=== PATIENT | male | born 1980 | race Caucasian/White ===

== ENCOUNTER 2016-06-01 06:30 | Day surgery (SDC) | payer OTHER, BC ==
[2016-06-01] MEDS ORDERED: Lactated Ringers 1,000 ML IV SCH ×2 (07:10→08:00)
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
[2016-06-01] MEDS ORDERED: Midazolam 1 MG/ML 2 ML SDV ONE (07:24)
[2016-06-01] MEDS ORDERED: Propofol 200 MG/20 ML SDV ONE (07:24)
[2016-06-01] MEDS ORDERED: fentaNYL 250 MCG/5 ML SDV ONE (07:24)
[2016-06-01] MEDS ORDERED: Lidocaine 2% 5 ML SDV ONE (07:24)
[2016-06-01] MEDS ORDERED: Ondansetron 4 MG/2 ML SDV ONE (07:25)
[2016-06-01] MEDS ORDERED: Ketorolac 30 MG/ML SDV ONE (07:25)
[2016-06-01] MEDS ORDERED: Bupivacaine 0.25%/EPINEPHrine 1:200,000 10 ML SDV ONE (07:26)
[2016-06-01] MEDS ORDERED: Bupivacaine 0.25%/EPINEPHrine 1:200,000 10 ML SDV INJECT ONE (07:30)
[2016-06-01] MEDS ORDERED: ceFAZolin 2 GM in Premix Bag 1 BAG IV ONE (07:30)
[2016-06-01] MEDS ORDERED: Acetaminophen/HYDROcodone 325-5 MG Tab PO PRN (08:00)
[2016-06-01] MEDS ORDERED: fentaNYL 100 MCG/2 ML SDV IVPUSH PRN (08:20)
--- NOTE | 2016-06-01 09:03 | PCM.POSTAN ---
POST ANESTHESIA ASSESSMENT - MENTAL STATUS Mental Status: alert, oriented - RESPIRATORY Respiratory Status: respiratory rate WNL - CARDIOVASCULAR CV Status: pulse rate WNL, blood pressure stable - GASTROINTESTINAL GI Status: no symptoms - PAIN Pain Score: 0 - POST OP HYDRATION Hydration Status: adequate & stable - OBSERVATIONS Free Text/Narrative:: no anesthesia problems
--- NOTE | 2016-06-01 09:15 | PCM.OPNOTE ---
- General Post-Op/Procedure Note Date of Surgery/Procedure: 06/01/16 Operative Procedure(s): excision of right volar wrist ganglion Pre Op Diagnosis: right volar wrist ganglion Post-Op Diagnosis: Same Anesthesia Technique: Local, MAC Primary Surgeon: Lizbeth Reyes Math Tutor: Nubia Rosales Complications: None Condition: Good Free Text/Narrative:: Intake & Output 05/31/16 06/01/16 06/01/16 23:59 07:59 15:59 Intake Total 1300 Balance 1300
[2016-06-01 10:02] VITALS: BP 118/66
--- NOTE | 2016-06-01 14:22 | OR ---
SURGEON: TAISHA CABRERA MD DATE OF PROCEDURE: 06/01/2016 PREOPERATIVE DIAGNOSIS: Right volar wrist ganglion. POSTOPERATIVE DIAGNOSIS: Right volar wrist ganglion. PROCEDURES: Excision of right volar wrist ganglion. MANAGER ER: Nubia Rosales PA-C. ANESTHESIA: General LMA. INDICATIONS: Mr. Richards is a 35-year-old gentleman, seen today in evaluation for a right volar wrist ganglion. Risks and benefits of excision were discussed with him and he was in agreement to proceed. Risks were including, but not limited to, bleeding, infection, damage to underlying or overlying structures, possible need for future interventions and possible scarring. PROCEDURE IN DETAIL: After informed consent was obtained and placed on the chart, the patient was brought to the operating theater and laid in the supine position. After adequate general LMA anesthesia was obtained, the area was prepped and draped in normal fashion. Time-out was completed to confirm side and site. Attention was then paid to dissection of the right volar wrist ganglion. Local anesthesia was infiltrated. The arm was exsanguinated and tourniquet was inflated to 200 mmHg. A longitudinal incision was then made over this dissection was carried down circumferentially and this was freed from all surrounding structures. It was traced down to the joint itself, cauterized, transected and a figure of eight 4- 0 Monocryl suture was used to close the communication with the joint. This was copiously irrigated and then the skin was closed using deep 4-0 Monocryl stitches in a running 4-0 subcuticular for the skin. The wound was dressed with Steri-Strips, fluffs, and a short-arm splint with plaster. The patient tolerated the procedure well. All counts of needles were correct at the end of the case. FOLLOWUP INSTRUCTIONS: The patient will see us in clinic in 10 to 14 days sooner if any problems, questions, or concerns. He was given a prescription for pain control. HEGGTHE / MODL /[id number]
== END 2016-06-01 09:50 | disposition home or self-care (01) ==
LOC: EDSEX → MW.SDS 06:30 → MERGE 08:00 → MW.SDS 09:50
PROVIDERS: ATTEND Plastic Surgery
DX: M67.431 Ganglion, right wrist (principal); Z88.1 Allergy status to other antibiotic agents; J45.909 Unspecified asthma, uncomplicated; K21.9 Gastro-esophageal reflux disease without esophagitis; E66.9 Obesity, unspecified; Z68.30 Body mass index [BMI] 30.0-30.9, adult; Z98.890 Other specified postprocedural states; Z79.899 Other long term (current) drug therapy
CPT/HCPCS: 25111; J1885; J2250; J2405; J3010; J7120; 01810; 88304; J2704

== ENCOUNTER 2018-09-06 19:42 | Emergency (ER) | payer OTHER ==
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
[2018-09-06] MEDS ORDERED: Ketorolac 30 MG/ML SDV IVPUSH ONE (21:04)
--- NOTE | 2018-09-06 21:23 | CR ---
INDICATION: Trauma. TECHNIQUE: Cervical spine 3 views. FINDINGS: Mild degenerative changes throughout the cervical facet joints. Scattered degenerative changes elsewhere in the cervical spine with moderate narrowing of the C2, C5, and C6 interspaces with minimal hypertrophic changes. No acute fracture or subluxation and cervical spine. Small right-sided cervical rib. Remainder negative. Dictated by Jamie Natarajan MD @ Sep 06 2018 9:18PM Signed by Dr. Jamie Natarajan @ Sep 06 2018 9:22PM
--- NOTE | 2018-09-06 21:23 | CR ---
INDICATION: Trauma. TECHNIQUE: Three views right shoulder. FINDINGS: The width of the AC joint is widened at 9 mm and there is abnormal superior subluxation of the right lateral clavicle with regard to the acromion by at least 1 cm. Findings consistent with posttraumatic AC separation and subluxation. The coracoclavicular distance is also widened. No acute fracture involving the right shoulder or clavicle. Small right-sided cervical rib. Remainder negative. Dictated by Jamie Natarajan MD @ Sep 06 2018 9:17PM Signed by Dr. Jamie Natarajan @ Sep 06 2018 9:21PM
--- NOTE | 2018-09-06 21:27 | CR ---
INDICATION: Trauma. TECHNIQUE: AP pelvis and 2 views right hip. FINDINGS: Small sclerotic lesion right femoral head may be a bone island. The right superior pubic ramus appears enlarged compared to the left and may have subtle increased sclerosis. Etiology of these findings is uncertain. There is subtle linear lucency involving the junction of the right superior pubic ramus and ischium but this is not as distinct as typically seen for a fracture. No acute fracture or dislocation involving the pelvis or right hip. Ill-defined cortical protuberance arising from the superior lateral iliac bone could be related to prior trauma. Remainder negative. Dictated by Jamie Natarajan MD @ Sep 06 2018 9:23PM Signed by Dr. Jamie Natarajan @ Sep 06 2018 9:26PM
[2018-09-06 21:49] VITALS: BP 145/76
== END 2018-09-06 21:50 | disposition home or self-care (01) ==
LOC: MW.ED 19:42
DX: S43.101A Unspecified dislocation of right acromioclavicular joint, initial encounter (principal); S00.81XA Abrasion of other part of head, initial encounter; S40.812A Abrasion of left upper arm, initial encounter; S40.811A Abrasion of right upper arm, initial encounter; T14.8XXA Other injury of unspecified body region, initial encounter; Z79.899 Other long term (current) drug therapy; Z88.1 Allergy status to other antibiotic agents; V89.2XXA Person injured in unspecified motor-vehicle accident, traffic, initial encounter
CPT/HCPCS: 72040; 73030; 73502; 96374; 99283; J1885

== ENCOUNTER 2019-03-13 10:44 | Day surgery (SDC) | payer OTHER ==
[~2019-03-13 10:44] MED LIST: Lactated Ringers 1,000 ML IV SCH; Lidocaine 2% 5 ML SDV ONE; Midazolam 1 MG/ML 2 ML SDV ONE; Propofol 200 MG/20 ML SDV ONE; fentaNYL 100 MCG/2 ML SDV ONE
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
--- NOTE | 2019-03-13 13:16 | PCM48HPAN ---
Post Anesthesia Note - EVALUATION WITHIN 48HRS OF ANESTHETIC Vital Signs in Normal Range: Yes Patient Participated in Evaluation: Yes Respiratory Function Stable: Yes Airway Patent: Yes Cardiovascular Function Stable: Yes Hydration Status Stable: Yes Pain Control Satisfactory: Yes Nausea and Vomiting Control Satisfactory: Yes Mental Status Recovered: Yes Vital Signs: Last Vital Signs Temp 97.9 F 03/13/19 13:00 Pulse 86 03/13/19 13:10 Resp 18 03/13/19 13:10 BP 124/73 03/13/19 13:10 Pulse Ox 98 03/13/19 13:10
--- NOTE | 2019-03-13 13:16 | PCM.POSTAN ---
POST ANESTHESIA ASSESSMENT - MENTAL STATUS Mental Status: Alert, Oriented - VITAL SIGNS Vital Signs: Last Vital Signs Temp 97.9 F 03/13/19 13:00 Pulse 86 03/13/19 13:10 Resp 18 03/13/19 13:10 BP 124/73 03/13/19 13:10 Pulse Ox 98 03/13/19 13:10 - RESPIRATORY Respiratory Status: Respiratory Rate WNL, Airway Patent, O2 Saturation Stable - CARDIOVASCULAR CV Status: Pulse Rate WNL, Blood Pressure Stable - GASTROINTESTINAL GI Status: No Symptoms - POST OP HYDRATION Hydration Status: Adequate & Stable
[2019-03-13 13:32] VITALS: BP 125/79; PULSE 83
--- NOTE | 2019-03-13 14:26 | PCM.OPNOTE ---
- General Post-Op/Procedure Note Date of Surgery/Procedure: 03/13/19 Operative Procedure(s): egd w bx Findings: see [id number] Pre Op Diagnosis: recurrent gerd Post-Op Diagnosis: Same Anesthesia Technique: Moderate Sedation Primary Surgeon: Jerome Gilman Pathology: sent Complications: None Condition: Good Free Text/Narrative:: Intake & Output 03/12/19 03/13/19 03/13/19 22:59 06:59 14:59 Intake Total 650 Balance 650
--- NOTE | 2019-03-13 15:39 | OR ---
SURGEON: Jerome Gilman MD DATE OF PROCEDURE: 03/13/2019 PREOPERATIVE DIAGNOSIS: Recurrent gastroesophageal reflux disease. POSTOPERATIVE DIAGNOSIS: Recurrent gastroesophageal reflux disease. PROCEDURE PERFORMED: Esophagogastroduodenoscopy with biopsy. DESCRIPTION OF PROCEDURE: EGD: The patient was taken to the endoscopy room, and with the QUILLER MACHINE FIXER, Diprivan was administered. A well-lubricated EGD scope was gently inserted through the oropharynx, down the esophagus, passing through the gastroesophageal junction, into the stomach. The mucosa was examined upon the passage. Any etiology will be noted. Once in the stomach, we continued to advance to the distal antrum, passed through the pylorus into the second portion of the duodenum. Again, the mucosa was examined for any abnormality and etiology. The scope was then retrieved back to the stomach and then retroflexed to look at the fundus of the stomach. If a biopsy was indicated, we will biopsy the antrum, body, and gastroesophageal junction. The air will be sucked out while the scope is retrieved to reduce the patient's discomfort. The patient tolerated the procedure well. There were no intraoperative complications. Dr. Gilman was present through the whole procedure. Prior to surgery, a time-out had been called, the patient identified, procedure identified and antibiotic administered. FINDINGS: 1. The patient is easily sedated with QUILLER MACHINE FIXER and Diprivan, the patient is soundly snoring. 2. Oropharynx and proximal esophagus are free of disease, stricture, inflammation, none of those. Distal esophagus at GE junction at 40 shows mild salmon-colored change, suggestive of acid reflux. Stomach rugae are normal in appearance. Antrum looks fine. Duodenum looks grossly normal. Retroflexed look at the fundus of stomach, there is no hiatal hernia. Biopsy done at antrum, body, GE junction at 40, and sucked out gas while scope pulling out. During the whole study, there is no blood, ulcer, food, or bile observed. MATT / PETE /[id number]
== END 2019-03-13 13:47 | disposition home or self-care (01) ==
LOC: MW.SDS 10:44
PROVIDERS: ATTEND Surgery
DX: K21.9 Gastro-esophageal reflux disease without esophagitis (principal); K29.50 Unspecified chronic gastritis without bleeding; G43.709 Chronic migraine without aura, not intractable, without status migrainosus; J45.909 Unspecified asthma, uncomplicated; Z88.1 Allergy status to other antibiotic agents; Z88.8 Allergy status to other drugs, medicaments and biological substances; Z91.010 Allergy to peanuts; Z79.01 Long term (current) use of anticoagulants; Z79.899 Other long term (current) drug therapy; Z88.0 Allergy status to penicillin
CPT/HCPCS: 43239; J2001; J2250; J2704; J3010; J7120

== ENCOUNTER 2020-10-03 10:11 | Inpatient (IN) | payer OTHER, BC ==
[2020-10-03] MEDS ORDERED: Ondansetron 4 MG/2 ML SDV IVPUSH ONE ×2 (10:29→10:30)
[2020-10-03] MEDS ORDERED: Sodium Chloride 0.9% 1,000 ML IV ONE ×2 (10:29→11:45)
--- NOTE | 2020-10-03 10:35 | EDM.PDOC ---
ED HPI GENERAL MEDICAL PROBLEM - General Chief Complaint: Fever Stated Complaint: CHILLS, FEVER Time Seen by Provider: 10/03/20 10:15 Source of Information: Reports: Patient History Limitations: Reports: No Limitations - History of Present Illness INITIAL COMMENTS - FREE TEXT/NARRATIVE: HISTORY AND PHYSICAL: History of present illness: Patient is a 39-year-old male who presents to the emergency room from the walk- in clinic with concerns of COVID-19. He states over the past 4 days he has had fever (TMAX 104F), chills, body aches, cough, shortness of breath, chest pain, nausea, vomiting and diarrhea. He and his went to the walk-in clinic for COVID-19 testing, they recommended he come to the emergency room as they were concerned he was dehydrated. Patient denies any change in vision, syncope or near syncope. Denies any back pain, abdominal pain, constipation or dysuria. Has not noted any blood in urine or stool. Patient has not been eating and drinking appropriately. Review of systems: As per history of present illness and below otherwise all systems reviewed and negative. Past medical history: As per history of present illness and as reviewed below otherwise noncontributory. Surgical history: As per history of present illness and as reviewed below otherwise noncontributory. Social history: See social history for further information Family history: As per history of present illness and as reviewed below otherwise noncontributory. Physical exam: General: Well developed and well nourished. Alert and orientated x 3. Nontoxic in appearance and in no acute distress. Vital signs are stable and have been reviewed by me. Nursing notes were reviewed. HEENT: Atraumatic, normocephalic, pupils equal and reactive bilaterally, negative for conjunctival pallor or scleral icterus, mucous membranes moist, TMs normal bilaterally, throat clear, neck supple, nontender, trachea midline. No drooling or trismus noted. No meningeal signs. No hot potato voice noted. Lungs: Diminished to auscultation bilaterally. No wheezes, rales, or rhonchi. Chest nontender. Normal work of breathing, no accessory muscles used. Dry nonproductive cough noted. Heart: S1S2, regular rate and rhythm without overt murmur, gallops, or rubs. No JVD. No peripheral edema Abdomen: Soft, nondistended, nontender. Normoactive bowel sounds. Negative for masses or costovertebral tenderness. Skin: Diaphoretic, intact, and cool. No lesions or rashes noted. Hematologic: No petechiae or purpra. Mucosa appropriate color and normal nail bed color and refill. Extremities: Atraumatic, moves all extremities per self without difficulty or deficits, negative for cords or calf pain. Neurovascular unremarkable. Neuro: Awake, alert, oriented. Cranial nerves II through XII unremarkable. Cerebellum unremarkable. Motor and sensory unremarkable throughout. Exam nonfocal. Psychiatric: Mood and affect are appropriate. Normal thought process. Answering questions appropriately. Notes: *This patient was seen and evaluated during the 2019 SARS-CoV-2 novel coronavirus pandemic period. Community viral transmission is ongoing at time of this encounter and the emergency department is operating under pandemic response procedures. Patient is a 39-year-old male who presents to the emergency room from the walk- in clinic with concerns of COVID-19. He states he has had nausea, vomiting, diarrhea over the past 4 days and upper respiratory symptoms. Patient does appear diaphoretic, he states his temperature was 104 at home. Has been alternating Tylenol and ibuprofen with intermittent relief. Influenza A/B are negative and Positive COVID-19 (from clinic testing today). Chest x-ray shows hyperinflation and chronic interstitial changes with increased interstitial markings likely representing developing pulmonary edema and/or multifocal infiltrates. Correlate with history of mendes virus infection and/or exposure. Patient's sodium is 130, chloride 95 and CK is 1839. Negative troponin. I have talked with the patient about today's findings, in addition to providing specific details for plan of care. Spoke with Dr Wall, hospitalist on-call, about this patient. He is agreeable to keeping t his patient for further management and care. Patient is aware and agreeable. VSS. Will continue to monitor until transferred to the Med/Surg floor. Diagnostics: CBC, CMP, troponin, EKG, chest x-ray, CPK Therapeutics: IV fluids, Tylenol Impression: COVID-19 Rhabdomyolysis Dehydration Definitive disposition and diagnosis as appropriate pending reevaluation and review of above. Back/Chest Pain Score (Numeric/FACES): 7 - Related Data Allergies Allergy/AdvReac Type Severity Reaction Status Date / Time amoxicillin [From Augmentin] Allergy Other Verified 10/03/20 10:29 clavulanic acid Allergy Other Verified 10/03/20 10:29 [From Augmentin] cyclobenzaprine Allergy Cannot Verified 10/03/20 10:29 [From Flexeril] Remember erythromycin base Allergy Cannot Verified 10/03/20 10:29 Remember hydrocodone Allergy Itching Verified 10/03/20 10:29 melatonin Allergy Hives Verified 10/03/20 10:29 neomycin Allergy Blisters Verified 10/03/20 10:29 tree nut [Pecans] Allergy Itching Verified 10/03/20 10:29 walnut Allergy Itching Verified 10/03/20 10:29 Home Meds: Home Meds Omeprazole [Prilosec] 20 mg PO BID 01/20/15 [History] Cyclobenzaprine [Flexeril] 10 mg PO ASDIRECTED PRN 09/06/18 [History] Fexofenadine [Radha] 30 mg PO DAILY 03/10/19 [History] Fluticasone Propionate [Flonase Allergy Relief] 2 spray NASBOTH DAILY 03/10/19 [History] Loratadine [Claritin] 10 mg PO DAILY 03/10/19 [History] Meloxicam 15 mg PO DAILY 03/10/19 [History] SUMAtriptan [Imitrex] 50 mg PO ASDIRECTED PRN 03/10/19 [History] methocarbamoL [Robaxin-750] 750 mg PO TID 03/10/19 [History] Past Medical History HEENT History: Reports: Allergic Rhinitis Other HEENT History: wears contacts/glasses Cardiovascular History: Reports: Heart Murmur, Other (See Below) Other Cardiovascular History: murmur as an Respiratory History: Reports: Asthma, Other (See Below) Other Respiratory History: asthma as a child Gastrointestinal History: Reports: GERD Genitourinary History: Reports: Renal Calculus Other Genitourinary History: hx kidney stone Musculoskeletal History: Reports: Back Pain, Chronic, Fracture Other Musculoskeletal History: hx of "multiple fx" Neurological History: Reports: Concussion, Migraines, Other (See Below) Other Neuro History: [place] 2002 [place] Endocrine/Metabolic History: Dermatologic History: Reports: Eczema Other Dermatologic History: dyohydronic eczwma - Past Surgical History Head Surgeries/Procedures: Reports: None GI Surgical History: Reports: Colonoscopy, EGD, Hernia, Inguinal Other GI Surgeries/Procedures: hx inguinal hernia repair Musculoskeletal Surgical History: Reports: Ganglion Cyst Other Musculoskeletal Surgeries/Procedures:: hx of ganglion cyst removal right hand Social & Family History - Family History Family Medical History: No Pertinent Family History ED ROS GENERAL - Review of Systems Review Of Systems: Comprehensive ROS is negative, except as noted in HPI. ED EXAM, GENERAL - Physical Exam Exam: See Below (See dictation) Course - Vital Signs Last Recorded V/S: Last Vital Signs Temp 99.2 F 10/03/20 13:25 Pulse 93 10/03/20 13:25 Resp 17 10/03/20 13:25 BP 129/73 10/03/20 13:25 Pulse Ox 94 L 10/03/20 13:25 - Orders/Labs/Meds Orders: Active Orders 24 hr Category Date Time Status UA RFX SHERRELL AND CULT IF INDIC [URIN] Stat Lab 10/03/20 10:39 Ordered Isolation [COMM] Routine Oth 10/03/20 10:30 Active Medication Orders Acetaminophen (Acetaminophen 325 Mg Tab) 650 mg PO Q4H PRN PRN Reason: Pain (Mild 1-3)/fever Enoxaparin Sodium (Enoxaparin 40 Mg/0.4 Ml Syringe) 40 mg SUBCUT Q24H COLLIN Lactated Ringer's (Ringers, Lactated) 1,000 mls @ 150 mls/hr IV Q6HR COLLIN Ondansetron HCl (Ondansetron 4 Mg/2 Ml Sdv) 4 mg IVPUSH Q4H PRN PRN Reason: Nausea Pantoprazole Sodium (Pantoprazole 40 Mg Vial) 40 mg IV Q24H COLLIN Sodium Chloride (Sodium Chloride 0.9% 2.5 Ml Syringe) 2.5 ml FLUSH ASDIRECTED PRN PRN Reason: Keep Vein Open Labs: Laboratory Tests 10/03/20 10/03/20 10/03/20 Range/Units 10:32 10:32 10:32 WBC 5.43 (4.0-11.0) K/uL RBC 4.93 (4.50-5.90) M/uL Hgb 14.8 (13.0-17.0) g/dL Hct 41.3 (38.0-50.0) % MCV 83.8 (80.0-98.0) fL MCH 30.0 (27.0-32.0) pg MCHC 35.8 (31.0-37.0) g/dL RDW Std Deviation 38.8 (28.0-62.0) fl RDW Coeff of Mary Carmen 13 (11.0-15.0) % Plt Count 116 L (150-400) K/uL MPV 10.90 (7.40-12.00) fL Neut % (Auto) 83.6 H (48.0-80.0) % Lymph % (Auto) 12.3 L (16.0-40.0) % [place] % (Auto) 3.9 (0.0-15.0) % Eos % (Auto) 0.0 (0.0-7.0) % Baso % (Auto) 0.2 (0.0-1.5) % Neut # (Auto) 4.5 (1.4-5.7) K/uL Lymph # (Auto) 0.7 (0.6-2.4) K/uL [place] # (Auto) 0.2 (0.0-0.8) K/uL Eos # (Auto) 0.0 (0.0-0.7) K/uL Baso # (Auto) 0.0 (0.0-0.1) K/uL Nucleated RBC % 0.0 /100WBC Nucleated RBCs # 0 K/uL Sodium 130 L (136-148) mmol/L Potassium 4.2 (3.5-5.1) mmol/L Chloride 95 L (98-107) mmol/L Carbon Dioxide 21.5 (21.0-32.0) mmol/L BUN 18 (7.0-18.0) mg/dL Creatinine 1.3 (0.8-1.3) mg/dL Est Cr Clr Drug Dosing 65.05 mL/min Estimated GFR (MDRD) > 60.0 ml/min Glucose 91 (74-106) mg/dL Lactic Acid 1.0 (0.4-2.0) mmol/L Calcium 7.8 L (8.5-10.1) mg/dL Total Bilirubin 0.5 (0.2-1.0) mg/dL AST 81 H (15-37) IU/L ALT 35 (14-63) IU/L Alkaline Phosphatase 58 (46-116) U/L Creatine Kinase (26-308) U/L Troponin I < 0.050 (0.000-0.056) ng/mL Total Protein 7.2 (6.4-8.2) g/dL Albumin 3.3 L (3.4-5.0) g/dL Globulin 3.9 (2.6-4.0) g/dL Albumin/Globulin Ratio 0.9 (0.9-1.6) Lipase (73-393) U/L 10/03/20 Range/Units 10:32 WBC (4.0-11.0) K/uL RBC (4.50-5.90) M/uL Hgb (13.0-17.0) g/dL Hct (38.0-50.0) % MCV (80.0-98.0) fL MCH (27.0-32.0) pg MCHC (31.0-37.0) g/dL RDW Std Deviation (28.0-62.0) fl RDW Coeff of Mary Carmen (11.0-15.0) % Plt Count (150-400) K/uL MPV (7.40-12.00) fL Neut % (Auto) (48.0-80.0) % Lymph % (Auto) (16.0-40.0) % [place] % (Auto) (0.0-15.0) % Eos % (Auto) (0.0-7.0) % Baso % (Auto) (0.0-1.5) % Neut # (Auto) (1.4-5.7) K/uL Lymph # (Auto) (0.6-2.4) K/uL [place] # (Auto) (0.0-0.8) K/uL Eos # (Auto) (0.0-0.7) K/uL Baso # (Auto) (0.0-0.1) K/uL Nucleated RBC % /100WBC Nucleated RBCs # K/uL Sodium (136-148) mmol/L Potassium (3.5-5.1) mmol/L Chloride (98-107) mmol/L Carbon Dioxide (21.0-32.0) mmol/L BUN (7.0-18.0) mg/dL Creatinine (0.8-1.3) mg/dL Est Cr Clr Drug Dosing mL/min Estimated GFR (MDRD) ml/min Glucose (74-106) mg/dL Lactic Acid (0.4-2.0) mmol/L Calcium (8.5-10.1) mg/dL Total Bilirubin (0.2-1.0) mg/dL AST (15-37) IU/L ALT (14-63) IU/L Alkaline Phosphatase (46-116) U/L Creatine Kinase 1839 H (26-308) U/L Troponin I (0.000-0.056) ng/mL Total Protein (6.4-8.2) g/dL Albumin (3.4-5.0) g/dL Globulin (2.6-4.0) g/dL Albumin/Globulin Ratio (0.9-1.6) Lipase 351 (73-393) U/L Meds: Medications Generic Name Dose Route Start Last Admin Trade Name Freq PRN Reason Stop Dose Admin Acetaminophen 650 mg 10/03/20 13:24 Acetaminophen 325 Mg Tab PO Q4H PRN Pain (Mild 1-3)/fever Enoxaparin Sodium 40 mg 10/03/20 13:30 Enoxaparin 40 Mg/0.4 Ml Syringe SUBCUT Q24H COLLIN Lactated Ringer's 1,000 mls @ 150 mls/hr 10/03/20 13:26 Ringers, Lactated IV Q6HR COLLIN Ondansetron HCl 4 mg 10/03/20 13:24 Ondansetron 4 Mg/2 Ml Sdv IVPUSH Q4H PRN Nausea Pantoprazole Sodium 40 mg 10/03/20 13:30 Pantoprazole 40 Mg Vial IV Q24H COLLIN Sodium Chloride 2.5 ml 10/03/20 13:24 Sodium Chloride 0.9% 2.5 Ml Syringe FLUSH ASDIRECTED PRN Keep Vein Open Discontinued Medications Generic Name Dose Route Start Last Admin Trade Name Freq PRN Reason Stop Dose Admin Acetaminophen 1,000 mg 10/03/20 12:40 10/03/20 13:00 Acetaminophen 500 Mg Tab PO 10/03/20 12:41 1,000 mg ONETIME ONE Administration Sodium Chloride 1,000 mls @ 999 mls/hr 10/03/20 10:29 10/03/20 10:36 Normal Saline IV 10/03/20 11:29 999 mls/hr STAT ONE Administration Sodium Chloride 1,000 mls @ 999 mls/hr 10/03/20 11:45 10/03/20 12:59 Normal Saline IV 10/03/20 12:45 999 mls/hr STAT ONE Administration Ondansetron HCl 4 mg 10/03/20 10:29 10/03/20 10:37 Ondansetron 4 Mg/2 Ml Sdv IVPUSH 10/03/20 10:30 4 mg ONETIME ONE Administration Ondansetron HCl 4 mg 10/03/20 10:30 10/03/20 10:36 Ondansetron 4 Mg/2 Ml Sdv IVPUSH 10/03/20 10:31 Not Given ONETIME ONE Departure - Departure Time of Disposition: 12:43 Disposition: Refer to Observation Clinical Impression: Rhabdomyolysis due to COVID-19, Dehydration - Discharge Information Sepsis Event Note (ED) - Focused Exam Vital Signs: Vital Signs Temp Pulse Resp BP Pulse Ox 10/03/20 11:01 97 18 126/56 L 94 L 10/03/20 10:29 100.6 F 95 16 118/72 92 L - My Orders Last 24 Hours: My Active Orders 10/03/20 10:30 Isolation [COMM] Routine 10/03/20 10:39 UA RFX SHERRELL AND CULT IF INDIC [URIN] Stat - Assessment/Plan Last 24 Hours: My Active Orders 10/03/20 10:30 Isolation [COMM] Routine 10/03/20 10:39 UA RFX SHERRELL AND CULT IF INDIC [URIN] Stat
--- NOTE | 2020-10-03 10:36 | PCM.EKG ---
#1 Interpretation Time: 10:35 EKG Interpretation Comments: EKG: NSR, nonspecific ST/T changes, Rate -92
--- NOTE | 2020-10-03 11:03 | CR ---
Indication: Shortness of breath Comparison: Two-view chest January 20, 2015 Technique: Single AP view chest Findings: There is hyperinflation and chronic interstitial change. There are increasing interstitial markings likely representing developing pulmonary edema. There is no pneumothorax or pleural effusion. The cardiac silhouette is mildly prominent with minimal aortic tortuosity. The bony thorax is grossly intact. Impression: Hyperinflation and chronic interstitial changes with increased interstitial markings likely representing developing pulmonary edema and/or multifocal infiltrates. Correlate with history of mendes virus infection and/or exposure. Dictated by Boris Barrios MD @ 10/03/2020 11:01:[address] Boris Barrios @ Oct 03 2020 11:01AM
[2020-10-03 11:07] LABS: BLOOD UREA NITROGEN,BUN 18 mg/dL (7.0-18.0); CARBON DIOXIDE,CO2 21.5 mmol/L (21.0-32.0); CHLORIDE,CL 95 mmol/L (98-107); GLUCOSE RANDOM 91 mg/dL (74-106); POTASSIUM,K 4.2 mmol/L (3.5-5.1); SODIUM,NA 130 mmol/L (136-148)
[2020-10-03 11:19] LABS: LIPASE 351 U/L (73-393)
[2020-10-03] MEDS ORDERED: Acetaminophen 500 MG Tab PO ONE (12:40)
[2020-10-03] MEDS ORDERED: Ondansetron 4 MG/2 ML SDV IVPUSH PRN (13:24)
[2020-10-03] MEDS ORDERED: Sodium Chloride 0.9% 2.5 ML Syringe FLUSH PRN (13:24)
[2020-10-03] MEDS ORDERED: Acetaminophen 325 MG Tab PO PRN (13:24)
[2020-10-03] MEDS ORDERED: Pantoprazole 40 MG Vial IV SCH (13:30)
--- NOTE | 2020-10-03 13:36 | PCM.HP.2 ---
H&P History of Present Illness - General Date of Service: 10/03/20 Admit Problem/Dx: Admission Diagnosis/Problem Admission Diagnosis/Problem Rhabdomyolysis Source of Information: Patient History Limitations: Reports: No Limitations - History of Present Illness Initial Comments - Free Text/Narative: This 38-year-old with little past medical history presented to the ER with c omplaints of generalized fatigue, malaise body aches dehydration inability to eat or drink and minimal taste. He reports he started getting symptoms of a scratchy throat shortness of breath nausea and vomiting last Saturday nearly a week ago. He reports that he is also had a fever of 104 F along with chills body aches loss of taste nausea vomiting and diarrhea. He reports nonproductive cough but does have some shortness of breath along with chest pain with coughing as well as taking deep breaths. He denies any dark-colored urine though it is more yellow and concentrated in appearance. He reports his diarrhea is yellow and watery approximately 1-2 times daily. He reports he has not eaten or drank very much in the last 4 to 5 days due to symptoms listed above. He denies any abdominal pain or black or bloody bowel movements. He denies tobacco use recreational drug use or alcohol use. Denies Covid vaccination In the ER platelet count noted to be 116,000, no leukocytosis. Sodium 130 chloride 95 potassium 4.2. BUN 18 creatinine 1.3 lactic acid 1.0. Mild elevation in AST at 81. CK notably elevated at 1839 troponin negative. Covid swab positive at the walk-in clinic. Chest x-ray reveals hyperinflation and chronic interstitial changes with increased interstitial markings likely representing pulmonary edema and/or multifocal infiltrates. EKG shows normal sinus rhythm no ST or T wave changes indicative of ischemia heart rate 90s. Patient was treated with Tylenol Zofran and 2 L normal saline bolus. Patient will be admitted inpatient for COVID-19, rhabdomyolysis and dehydration. Currently patient is not hypoxic noted to be dyspneic but oxygen saturation 94% on room air. Back/Chest Pain Score (Numeric/FACES): 7 - Related Data Allergies/Adverse Reactions: Allergies Allergy/AdvReac Type Severity Reaction Status Date / Time amoxicillin [From Augmentin] Allergy Other Verified 10/03/20 13:36 clavulanic acid Allergy Other Verified 10/03/20 13:36 [From Augmentin] cyclobenzaprine Allergy Cannot Verified 10/03/20 13:36 [From Flexeril] Remember erythromycin base Allergy Cannot Verified 10/03/20 13:36 Remember hydrocodone Allergy Itching Verified 10/03/20 13:36 melatonin Allergy Hives Verified 10/03/20 13:36 neomycin Allergy Blisters Verified 10/03/20 13:36 tree nut [Pecans] Allergy Itching Verified 10/03/20 13:36 walnut Allergy Itching Verified 10/03/20 13:36 Home Medications: Home Meds Omeprazole [Prilosec] 20 mg PO BID 01/20/15 [History] Cyclobenzaprine [Flexeril] 10 mg PO ASDIRECTED PRN 09/06/18 [History] Fexofenadine [Radha] 30 mg PO DAILY 03/10/19 [History] Fluticasone Propionate [Flonase Allergy Relief] 2 spray NASBOTH DAILY 03/10/19 [History] Loratadine [Claritin] 10 mg PO DAILY 03/10/19 [History] Meloxicam 15 mg PO DAILY 03/10/19 [History] SUMAtriptan [Imitrex] 50 mg PO ASDIRECTED PRN 03/10/19 [History] methocarbamoL [Robaxin-750] 750 mg PO TID 03/10/19 [History] Past Medical History HEENT History: Reports: Allergic Rhinitis Other HEENT History: wears contacts/glasses Cardiovascular History: Reports: Heart Murmur, Other (See Below) Other Cardiovascular History: murmur as an infant Respiratory History: Reports: Asthma, Other (See Below) Other Respiratory History: asthma as a child Gastrointestinal History: Reports: GERD Genitourinary History: Reports: Renal Calculus Other Genitourinary History: hx kidney stone Musculoskeletal History: Reports: Back Pain, Chronic, Fracture Other Musculoskeletal History: hx of "multiple fx" Neurological History: Reports: Concussion, Migraines, Other (See Below) Other Neuro History: concussion in 2002 from IED in [place] Endocrine/Metabolic History: Reports: None. Denies: Diabetes, Type II, Obesity/BMI 30+ Dermatologic History: Reports: Eczema Other Dermatologic History: dyohydronic eczwma - Infectious Disease History Infectious Disease History: Reports: Chicken Pox - Past Surgical History Head Surgeries/Procedures: Reports: None GI Surgical History: Reports: Colonoscopy, EGD, Hernia, Inguinal Other GI Surgeries/Procedures: hx inguinal hernia repair Musculoskeletal Surgical History: Reports: Ganglion Cyst Other Musculoskeletal Surgeries/Procedures:: hx of ganglion cyst removal right hand Social & Family History - Family History Family Medical History: No Pertinent Family History - Tobacco Use Tobacco Use Status *Q: Never Tobacco User - Caffeine Use Caffeine Use: Reports: None - Alcohol Use Alcohol Use History: No - Recreational Drug Use Recreational Drug Use: No - Living Situation & Occupation Living situation: Reports: H&P Review of Systems - Review of Systems: Review Of Systems: See Below General: Reports: Fever, Chills, Malaise, Fatigue, Decreased Appetite HEENT: Reports: Headaches, Sinus Congestion. Denies: Sore Throat, Vertigo Pulmonary: Reports: Shortness of Breath, Pleuritic Chest Pain, Cough. Denies: Sputum, Hemoptysis Cardiovascular: Reports: Dyspnea on Exertion. Denies: Edema Gastrointestinal: Reports: Diarrhea, Decreased Appetite, Nausea, Vomiting. Denies: Abdominal Pain, Black Stool, Bloody Stool Genitourinary: Reports: No Symptoms. Denies: Dysuria, Frequency, Burning Musculoskeletal: Reports: No Symptoms. Denies: Neck Pain Skin: Reports: No Symptoms Psychiatric: Reports: No Symptoms Neurological: Reports: No Symptoms Hematologic/Lymphatic: Reports: No Symptoms Immunologic: Reports: No Symptoms Exam - Exam Exam: See Below - Vital Signs Vital Signs: Last Vital Signs Temp 99.2 F 10/03/20 13:25 Pulse 93 10/03/20 13:25 Resp 17 10/03/20 13:25 BP 129/73 10/03/20 13:25 Pulse Ox 94 L 10/03/20 13:25 Weight: 62.596 kg - Exam Quality Assessment: DVT Prophylaxis. No: Supplemental Oxygen General: Alert, Oriented, Cooperative HEENT: Conjunctiva Clear, Posterior Pharynx Clear, Pupils Equal. No: Mucosa Moist & Appling (Dry) Lungs: Decreased Breath Sounds (Bibasilar), Crackles (Bibasilar fine). No: Norm al Respiratory Effort (Dyspnea) Cardiovascular: Regular Rate, Regular Rhythm GI/Abdominal Exam: Normal Bowel Sounds, Soft, Non-Tender Back Exam: Normal Inspection, Full Range of Motion Extremities: Normal Inspection, Normal Range of Motion, Non-Tender, No Pedal Edema Skin: Warm, Dry Neuro Extensive - Mental Status: Alert, Oriented x3 Neuro Extensive - Motor, Sensory, Reflexes: CN II-XII Intact Psychiatric: Alert, Normal Affect, Normal Mood - Patient Data Lab Results Last 24 hrs: Laboratory Results - last 24 hr 10/03/20 10/03/20 10/03/20 Range/Units 10:32 10:32 10:32 WBC 5.43 (4.0-11.0) K/uL RBC 4.93 (4.50-5.90) M/uL Hgb 14.8 (13.0-17.0) g/dL Hct 41.3 (38.0-50.0) % MCV 83.8 (80.0-98.0) fL MCH 30.0 (27.0-32.0) pg MCHC 35.8 (31.0-37.0) g/dL RDW Std Deviation 38.8 (28.0-62.0) fl RDW Coeff of Mary Carmen 13 (11.0-15.0) % Plt Count 116 L (150-400) K/uL MPV 10.90 (7.40-12.00) fL Neut % (Auto) 83.6 H (48.0-80.0) % Lymph % (Auto) 12.3 L (16.0-40.0) % Ford % (Auto) 3.9 (0.0-15.0) % Eos % (Auto) 0.0 (0.0-7.0) % Baso % (Auto) 0.2 (0.0-1.5) % Neut # (Auto) 4.5 (1.4-5.7) K/uL Lymph # (Auto) 0.7 (0.6-2.4) K/uL Ford # (Auto) 0.2 (0.0-0.8) K/uL Eos # (Auto) 0.0 (0.0-0.7) K/uL Baso # (Auto) 0.0 (0.0-0.1) K/uL Nucleated RBC % 0.0 /100WBC Nucleated RBCs # 0 K/uL Sodium 130 L (136-148) mmol/L Potassium 4.2 (3.5-5.1) mmol/L Chloride 95 L (98-107) mmol/L Carbon Dioxide 21.5 (21.0-32.0) mmol/L BUN 18 (7.0-18.0) mg/dL Creatinine 1.3 (0.8-1.3) mg/dL Est Cr Clr Drug Dosing 65.05 mL/min Estimated GFR (MDRD) > 60.0 ml/min Glucose 91 (74-106) mg/dL Lactic Acid 1.0 (0.4-2.0) mmol/L Calcium 7.8 L (8.5-10.1) mg/dL Total Bilirubin 0.5 (0.2-1.0) mg/dL AST 81 H (15-37) IU/L ALT 35 (14-63) IU/L Alkaline Phosphatase 58 (46-116) U/L Creatine Kinase (26-308) U/L Troponin I < 0.050 (0.000-0.056) ng/mL Total Protein 7.2 (6.4-8.2) g/dL Albumin 3.3 L (3.4-5.0) g/dL Globulin 3.9 (2.6-4.0) g/dL Albumin/Globulin Ratio 0.9 (0.9-1.6) Lipase (73-393) U/L 10/03/20 Range/Units 10:32 WBC (4.0-11.0) K/uL RBC (4.50-5.90) M/uL Hgb (13.0-17.0) g/dL Hct (38.0-50.0) % MCV (80.0-98.0) fL MCH (27.0-32.0) pg MCHC (31.0-37.0) g/dL RDW Std Deviation (28.0-62.0) fl RDW Coeff of Mary Carmen (11.0-15.0) % Plt Count (150-400) K/uL MPV (7.40-12.00) fL Neut % (Auto) (48.0-80.0) % Lymph % (Auto) (16.0-40.0) % Ford % (Auto) (0.0-15.0) % Eos % (Auto) (0.0-7.0) % Baso % (Auto) (0.0-1.5) % Neut # (Auto) (1.4-5.7) K/uL Lymph # (Auto) (0.6-2.4) K/uL Ford # (Auto) (0.0-0.8) K/uL Eos # (Auto) (0.0-0.7) K/uL Baso # (Auto) (0.0-0.1) K/uL Nucleated RBC % /100WBC Nucleated RBCs # K/uL Sodium (136-148) mmol/L Potassium (3.5-5.1) mmol/L Chloride (98-107) mmol/L Carbon Dioxide (21.0-32.0) mmol/L BUN (7.0-18.0) mg/dL Creatinine (0.8-1.3) mg/dL Est Cr Clr Drug Dosing mL/min Estimated GFR (MDRD) ml/min Glucose (74-106) mg/dL Lactic Acid (0.4-2.0) mmol/L Calcium (8.5-10.1) mg/dL Total Bilirubin (0.2-1.0) mg/dL AST (15-37) IU/L ALT (14-63) IU/L Alkaline Phosphatase (46-116) U/L Creatine Kinase 1839 H (26-308) U/L Troponin I (0.000-0.056) ng/mL Total Protein (6.4-8.2) g/dL Albumin (3.4-5.0) g/dL Globulin (2.6-4.0) g/dL Albumin/Globulin Ratio (0.9-1.6) Lipase 351 (73-393) U/L Result Diagrams: 10/03/20 10:32 10/03/20 10:32 Sepsis Event Note - Evaluation Sepsis Screening Result: No Definite Risk - Focused Exam Vital Signs: Vital Signs Temp Temp Pulse Resp BP Pulse Ox 10/03/20 13:25 99.2 F 93 17 129/73 94 L 10/03/20 13:00 100.6 F 10/03/20 11:01 97 18 126/56 L 94 L 10/03/20 10:29 100.6 F 95 16 118/72 92 L - Problem List (1) Rhabdomyolysis due to COVID-19 SNOMED Code(s): 843627117 ICD Code: U07.1 - COVID-19; M62.82 - RHABDOMYOLYSIS Status: Acute Current Visit: Yes (2) COVID-19 SNOMED Code(s): 794667800 ICD Code: U07.1 - COVID-19 Status: Acute Current Visit: Yes (3) Dehydration SNOMED Code(s): 98220185 ICD Code: E86.0 - DEHYDRATION Status: Acute Current Visit: Yes (4) Migraines SNOMED Code(s): 09359280 ICD Code: G43.909 - MIGRAINE, UNSP, NOT INTRACTABLE, WITHOUT STATUS MIGRAINOSUS Status: Chronic Current Visit: Yes Problem List Initiated/Reviewed/Updated: Yes Orders Last 24hrs: Active Orders 24 hr Category Date Time Status Admission Status [Patient Status] [ADT] Stat ADT 10/03/20 11:37 Active Intake and Output Strict [RC] ASDIRECTED Care 10/03/20 13:29 Active Oxygen Therapy [RC] PRN Care 10/03/20 13:24 Active Up With Assistance [RC] ASDIRECTED Care 10/03/20 13:24 Active VTE/DVT Education [RC] PER UNIT ROUTINE Care 10/03/20 13:24 Active Vital Signs [RC] Q4H Care 10/03/20 13:24 Active Regular Diet [DIET] Diet 10/03/20 Lunch Active BASIC METABOLIC PANEL,BMP [CHEM] AM Lab 10/04/20 05:11 Ordered CBC WITH AUTO DIFF [HEME] AM Lab 10/04/20 05:11 Ordered CREATINE KINASE,CK [CHEM] AM Lab 10/04/20 05:11 Ordered MAGNESIUM [CHEM] AM Lab 10/04/20 05:11 Ordered UA RFX SHERRELL AND CULT IF INDIC [URIN] Stat Lab 10/03/20 10:39 Ordered Acetaminophen [TylenoL] Med 10/03/20 13:24 Ordered 650 mg PO Q4H PRN Enoxaparin [Lovenox] Med 10/03/20 13:30 Ordered 40 mg SUBCUT Q24H Lactated Ringers [Ringers, Lactated] 1,000 ml Med 10/03/20 13:26 Ordered IV Q6HR Ondansetron [Zofran] Med 10/03/20 13:24 Ordered 4 mg IVPUSH Q4H PRN Pantoprazole [ProTONIX IV] Med 10/03/20 13:30 Ordered 40 mg IV Q24H Sodium Chloride 0.9% [Saline Flush] Med 10/03/20 13:24 Ordered 2.5 ml FLUSH ASDIRECTED PRN Isolation [COMM] Routine Oth 10/03/20 10:30 Active Saline Lock Insert [OM.PC] Routine Oth 10/03/20 13:24 Ordered Resuscitation Status Routine Resus Stat 10/03/20 13:24 Ordered Medication Orders Acetaminophen (Acetaminophen 325 Mg Tab) 650 mg PO Q4H PRN PRN Reason: Pain (Mild 1-3)/fever Enoxaparin Sodium (Enoxaparin 40 Mg/0.4 Ml Syringe) 40 mg SUBCUT Q24H COLLIN Lactated Ringer's (Ringers, Lactated) 1,000 mls @ 150 mls/hr IV Q6HR COLLIN Ondansetron HCl (Ondansetron 4 Mg/2 Ml Sdv) 4 mg IVPUSH Q4H PRN PRN Reason: Nausea Pantoprazole Sodium (Pantoprazole 40 Mg Vial) 40 mg IV Q24H COLLIN Sodium Chloride (Sodium Chloride 0.9% 2.5 Ml Syringe) 2.5 ml FLUSH ASDIRECTED PRN PRN Reason: Keep Vein Open Assessment/Plan Comment:: This 39-year-old male admitted with COVID-19 infection and rhabdomyolysis 1. Rhabdomyolysis -Patient given 2 L of IV fluids in the ER, will give 1 more liter LR 150 and stop after that -CK rechecked is downtrending will recheck in a.m. -We will be cautious with IV fluids due to COVID-19 diagnosis -Monitor strict I's and O's 2. COVID-19 -Currently not hypoxic -I-S encouraged along with proning -Symptomatic relief with cough medicine and Zofran for nausea -Encourage p.o. intake of fluids as possible VTE prophylaxis: Lovenox GI prophylaxis: Protonix CODE STATUS: Full code Dispo: Patient likely will need greater than 2 midnight stay due to nausea vomiting and discharge unlikely in a.m. We will make patient inpatient at this time.
[2020-10-03] MEDS: Lactated Ringers 1,000 ML IV SCH ×2 (14:35→18:51)
[2020-10-03] MEDS: Pantoprazole 40 MG in Sodium Chloride 0.9% 10 ML IV SCH (14:36)
[2020-10-03] MEDS: Enoxaparin 40 MG/0.4 ML Syringe SUBCUT SCH (14:36)
[2020-10-03] MEDS ORDERED: Codeine/guaiFENesin 10-100 MG/5 ML Syrup 5 ML Cup PO PRN (19:35)
[2020-10-04 07:33] LABS: BLOOD UREA NITROGEN,BUN 10 mg/dL (7.0-18.0); CHLORIDE,CL 98 mmol/L (98-107); GLUCOSE RANDOM 88 mg/dL (74-106); SODIUM,NA 134 mmol/L (136-148)
[2020-10-04] MEDS ORDERED: Lactated Ringers 1,000 ML IV ONE ×2 (08:08→09:00)
--- NOTE | 2020-10-04 09:03 | PCM.PN ---
- General Info Date of Service: 10/04/20 Admission Dx/Problem (Free Text): Admission Diagnosis/Problem Admission Diagnosis/Problem Rhabdomyolysis Subjective Update: feel very lousy today, didn't sleep well overnight. reports generalized malaise and fatigue along with body aches. Reports chest pain with deep breathing and coughing. mild abdominal pain. reports dark tarry/green diarrhea today. Tolerating CL diet and had piece of toast. - Review of Systems General: Reports: Weakness, Fatigue, Malaise, Chills. Denies: Appetite HEENT: Reports: Headaches (all over) Pulmonary: Reports: Shortness of Breath, Pleuritic Chest Pain, Cough. Denies: Sputum, Hemoptysis, Wheezing Cardiovascular: Reports: Dyspnea on Exertion Gastrointestinal: Reports: Abdominal Pain (mild), Diarrhea. Denies: Nausea, Vomiting Genitourinary: Reports: No Symptoms. Denies: Dysuria, Frequency, Burning Musculoskeletal: Reports: No Symptoms Skin: Reports: No Symptoms Neurological: Reports: No Symptoms Psychiatric: Reports: No Symptoms - Patient Data Vitals - Most Recent: Last Vital Signs Temp 99.2 F 10/04/20 08:54 Pulse 86 10/04/20 08:54 Resp 20 10/04/20 08:54 BP 80/44 L 10/04/20 08:54 Pulse Ox 90 L 10/04/20 08:54 Weight - Most Recent: 81.964 kg I&O - Last 24 Hours: Intake & Output 10/03/20 10/04/20 10/04/20 22:59 06:59 14:59 Intake Total 1155 1940 Output Total 600 Balance 1155 1340 Lab Results Last 24 Hours: Laboratory Results - last 24 hr 10/03/20 10/03/20 10/03/20 Range/Units 10:32 10:32 10:32 WBC 5.43 (4.0-11.0) K/uL RBC 4.93 (4.50-5.90) M/uL Hgb 14.8 (13.0-17.0) g/dL Hct 41.3 (38.0-50.0) % MCV 83.8 (80.0-98.0) fL MCH 30.0 (27.0-32.0) pg MCHC 35.8 (31.0-37.0) g/dL RDW Std Deviation 38.8 (28.0-62.0) fl RDW Coeff of Mary Carmen 13 (11.0-15.0) % Plt Count 116 L (150-400) K/uL MPV 10.90 (7.40-12.00) fL Neut % (Auto) 83.6 H (48.0-80.0) % Lymph % (Auto) 12.3 L (16.0-40.0) % Craig % (Auto) 3.9 (0.0-15.0) % Eos % (Auto) 0.0 (0.0-7.0) % Baso % (Auto) 0.2 (0.0-1.5) % Neut # (Auto) 4.5 (1.4-5.7) K/uL Lymph # (Auto) 0.7 (0.6-2.4) K/uL Craig # (Auto) 0.2 (0.0-0.8) K/uL Eos # (Auto) 0.0 (0.0-0.7) K/uL Baso # (Auto) 0.0 (0.0-0.1) K/uL Nucleated RBC % 0.0 /100WBC Nucleated RBCs # 0 K/uL Sodium 130 L (136-148) mmol/L Potassium 4.2 (3.5-5.1) mmol/L Chloride 95 L (98-107) mmol/L Carbon Dioxide 21.5 (21.0-32.0) mmol/L BUN 18 (7.0-18.0) mg/dL Creatinine 1.3 (0.8-1.3) mg/dL Est Cr Clr Drug Dosing 65.05 mL/min Estimated GFR (MDRD) > 60.0 ml/min Glucose 91 (74-106) mg/dL Lactic Acid 1.0 (0.4-2.0) mmol/L Calcium 7.8 L (8.5-10.1) mg/dL Magnesium (1.8-2.4) mg/dL Total Bilirubin 0.5 (0.2-1.0) mg/dL AST 81 H (15-37) IU/L ALT 35 (14-63) IU/L Alkaline Phosphatase 58 (46-116) U/L Creatine Kinase (26-308) U/L Troponin I < 0.050 (0.000-0.056) ng/mL Total Protein 7.2 (6.4-8.2) g/dL Albumin 3.3 L (3.4-5.0) g/dL Globulin 3.9 (2.6-4.0) g/dL Albumin/Globulin Ratio 0.9 (0.9-1.6) Lipase (73-393) U/L Urine Color Urine Appearance Urine pH (5.0-8.0) Ur Specific [place] (1.001-1.035) Urine Protein (NEGATIVE) mg/dL Urine Glucose (UA) (NEGATIVE) mg/dL Urine Ketones (NEGATIVE) mg/dL Urine Occult Blood (NEGATIVE) Urine Nitrite (NEGATIVE) Urine Bilirubin (NEGATIVE) Urine Ictotest Urine Urobilinogen (<2.0) EU/dL Ur Leukocyte Esterase (NEGATIVE) Urine RBC (0-2/HPF) Urine WBC (0-5/HPF) Ur Epithelial Cells (NONE-FEW) Amorphous Sediment (NEGATIVE) Urine Bacteria (NEGATIVE) Urine Mucus (NONE-MOD) 10/03/20 10/03/20 10/03/20 Range/Units 10:32 14:30 14:53 WBC (4.0-11.0) K/uL RBC (4.50-5.90) M/uL Hgb (13.0-17.0) g/dL Hct (38.0-50.0) % MCV (80.0-98.0) fL MCH (27.0-32.0) pg MCHC (31.0-37.0) g/dL RDW Std Deviation (28.0-62.0) fl RDW Coeff of Mary Carmen (11.0-15.0) % Plt Count (150-400) K/uL MPV (7.40-12.00) fL Neut % (Auto) (48.0-80.0) % Lymph % (Auto) (16.0-40.0) % Craig % (Auto) (0.0-15.0) % Eos % (Auto) (0.0-7.0) % Baso % (Auto) (0.0-1.5) % Neut # (Auto) (1.4-5.7) K/uL Lymph # (Auto) (0.6-2.4) K/uL Craig # (Auto) (0.0-0.8) K/uL Eos # (Auto) (0.0-0.7) K/uL Baso # (Auto) (0.0-0.1) K/uL Nucleated RBC % /100WBC Nucleated RBCs # K/uL Sodium (136-148) mmol/L Potassium (3.5-5.1) mmol/L Chloride (98-107) mmol/L Carbon Dioxide (21.0-32.0) mmol/L BUN (7.0-18.0) mg/dL Creatinine (0.8-1.3) mg/dL Est Cr Clr Drug Dosing mL/min Estimated GFR (MDRD) ml/min Glucose (74-106) mg/dL Lactic Acid (0.4-2.0) mmol/L Calcium (8.5-10.1) mg/dL Magnesium (1.8-2.4) mg/dL Total Bilirubin (0.2-1.0) mg/dL AST (15-37) IU/L ALT (14-63) IU/L Alkaline Phosphatase (46-116) U/L Creatine Kinase 1839 H 1544 H (26-308) U/L Troponin I (0.000-0.056) ng/mL Total Protein (6.4-8.2) g/dL Albumin (3.4-5.0) g/dL Globulin (2.6-4.0) g/dL Albumin/Globulin Ratio (0.9-1.6) Lipase 351 (73-393) U/L Urine Color YELLOW Urine Appearance HAZY Urine pH 6.0 (5.0-8.0) Ur Specific [place] 1.025 (1.001-1.035) Urine Protein 30 H (NEGATIVE) mg/dL Urine Glucose (UA) NEGATIVE (NEGATIVE) mg/dL Urine Ketones >=80 (NEGATIVE) mg/dL Urine Occult Blood NEGATIVE (NEGATIVE) Urine Nitrite NEGATIVE (NEGATIVE) Urine Bilirubin SMALL H (NEGATIVE) Urine Ictotest NEGATIVE Urine Urobilinogen 0.2 (<2.0) EU/dL Ur Leukocyte Esterase NEGATIVE (NEGATIVE) Urine RBC 0-2 (0-2/HPF) Urine WBC 1-3 (0-5/HPF) Ur Epithelial Cells FEW (NONE-FEW) Amorphous Sediment LIGHT (NEGATIVE) Urine Bacteria 2+ H (NEGATIVE) Urine Mucus MODERATE (NONE-MOD) 10/04/20 10/04/20 Range/Units 06:25 06:25 WBC 5.38 (4.0-11.0) K/uL RBC 4.38 L (4.50-5.90) M/uL Hgb 13.0 (13.0-17.0) g/dL Hct 36.7 L (38.0-50.0) % MCV 83.8 (80.0-98.0) fL MCH 29.7 (27.0-32.0) pg MCHC 35.4 (31.0-37.0) g/dL RDW Std Deviation 38.5 (28.0-62.0) fl RDW Coeff of Mary Carmen 13 (11.0-15.0) % Plt Count 132 L (150-400) K/uL MPV 11.20 (7.40-12.00) fL Neut % (Auto) 76.2 (48.0-80.0) % Lymph % (Auto) 19.5 (16.0-40.0) % Craig % (Auto) 3.7 (0.0-15.0) % Eos % (Auto) 0.2 (0.0-7.0) % Baso % (Auto) 0.4 (0.0-1.5) % Neut # (Auto) 4.1 (1.4-5.7) K/uL Lymph # (Auto) 1.1 (0.6-2.4) K/uL Craig # (Auto) 0.2 (0.0-0.8) K/uL Eos # (Auto) 0.0 (0.0-0.7) K/uL Baso # (Auto) 0.0 (0.0-0.1) K/uL Nucleated RBC % 0.0 /100WBC Nucleated RBCs # 0 K/uL Sodium 134 L (136-148) mmol/L Potassium 4.0 (3.5-5.1) mmol/L Chloride 98 (98-107) mmol/L Carbon Dioxide 26.0 (21.0-32.0) mmol/L BUN 10 (7.0-18.0) mg/dL Creatinine 1.0 (0.8-1.3) mg/dL Est Cr Clr Drug Dosing 84.56 mL/min Estimated GFR (MDRD) > 60.0 ml/min Glucose 88 (74-106) mg/dL Lactic Acid (0.4-2.0) mmol/L Calcium 7.4 L (8.5-10.1) mg/dL Magnesium 1.8 (1.8-2.4) mg/dL Total Bilirubin (0.2-1.0) mg/dL AST (15-37) IU/L ALT (14-63) IU/L Alkaline Phosphatase (46-116) U/L Creatine Kinase 2351 H (26-308) U/L Troponin I (0.000-0.056) ng/mL Total Protein (6.4-8.2) g/dL Albumin (3.4-5.0) g/dL Globulin (2.6-4.0) g/dL Albumin/Globulin Ratio (0.9-1.6) Lipase (73-393) U/L Urine Color Urine Appearance Urine pH (5.0-8.0) Ur Specific [place] (1.001-1.035) Urine Protein (NEGATIVE) mg/dL Urine Glucose (UA) (NEGATIVE) mg/dL Urine Ketones (NEGATIVE) mg/dL Urine Occult Blood (NEGATIVE) Urine Nitrite (NEGATIVE) Urine Bilirubin (NEGATIVE) Urine Ictotest Urine Urobilinogen (<2.0) EU/dL Ur Leukocyte Esterase (NEGATIVE) Urine RBC (0-2/HPF) Urine WBC (0-5/HPF) Ur Epithelial Cells (NONE-FEW) Amorphous Sediment (NEGATIVE) Urine Bacteria (NEGATIVE) Urine Mucus (NONE-MOD) Med Orders - Current: Current Medications Acetaminophen (Acetaminophen 325 Mg Tab) 650 mg PO Q4H PRN PRN Reason: Pain (Mild 1-3)/fever Enoxaparin Sodium (Enoxaparin 40 Mg/0.4 Ml Syringe) 40 mg SUBCUT Q24H [facility] Last Admin: 10/03/20 14:36 Dose: 40 mg Documented by: Guaifenesin/Codeine Phosphate (Codeine/Guaifenesin 10-100 Mg/5 Ml Syrup 5 Ml Cup) 5 ml PO Q6H PRN PRN Reason: Cough Last Admin: 10/03/20 20:25 Dose: 5 ml Documented by: Pantoprazole Sodium 40 mg/ (Sodium Chloride) 10 mls @ 300 mls/hr IV Q24H COLLIN Last Admin: 10/03/20 14:36 Dose: 300 mls/hr Documented by: Lactated Ringer's (Ringers, Lactated) 1,000 mls @ 150 mls/hr IV ONETIME ONE Stop: 10/04/20 14:47 Last Admin: 10/04/20 08:43 Dose: 150 mls/hr Documented by: Lactated Ringer's (Ringers, Lactated) 1,000 mls @ 999 mls/hr IV .BOLUS ONE Stop: 10/04/20 10:00 Ondansetron HCl (Ondansetron 4 Mg/2 Ml Sdv) 4 mg IVPUSH Q4H PRN PRN Reason: Nausea Last Admin: 10/03/20 18:15 Dose: 4 mg Documented by: Sodium Chloride (Sodium Chloride 0.9% 2.5 Ml Syringe) 2.5 ml FLUSH ASDIRECTED PRN PRN Reason: Keep Vein Open Discontinued Medications Acetaminophen (Acetaminophen 500 Mg Tab) 1,000 mg PO ONETIME ONE Stop: 10/03/20 12:41 Last Admin: 10/03/20 13:00 Dose: 1,000 mg Documented by: Sodium Chloride (Normal Saline) 1,000 mls @ 999 mls/hr IV STAT ONE Stop: 10/03/20 11:29 Last Admin: 10/03/20 10:36 Dose: 999 mls/hr Documented by: Sodium Chloride (Normal Saline) 1,000 mls @ 999 mls/hr IV STAT ONE Stop: 10/03/20 12:45 Last Admin: 10/03/20 12:59 Dose: 999 mls/hr Documented by: Lactated Ringer's (Ringers, Lactated) 1,000 mls @ 150 mls/hr IV Q6HR COLLIN Stop: 10/03/20 21:30 Last Admin: 10/03/20 18:51 Dose: Not Given Documented by: Ondansetron HCl (Ondansetron 4 Mg/2 Ml Sdv) 4 mg IVPUSH ONETIME ONE Stop: 10/03/20 10:30 Last Admin: 10/03/20 10:37 Dose: 4 mg Documented by: Ondansetron HCl (Ondansetron 4 Mg/2 Ml Sdv) 4 mg IVPUSH ONETIME ONE Stop: 10/03/20 10:31 Last Admin: 10/03/20 10:36 Dose: Not Given Documented by: - Exam Quality Assessment: DVT Prophylaxis. No: Supplemental Oxygen General: Alert, Oriented, Cooperative, No Acute Distress Lungs: Decreased Breath Sounds, Crackles (fine crackles to bases) Cardiovascular: Regular Rate, Regular Rhythm GI/Abdominal Exam: Normal Bowel Sounds, Soft, Tender (r mid abdomen) Back Exam: Normal Inspection, Full Range of Motion Extremities: Normal Inspection, Normal Range of Motion, Non-Tender, No Pedal Edema Skin: Warm, Dry, Intact Neurological: No New Focal Deficit Psy/Mental Status: Alert, Normal Affect, Normal Mood - Patient Data Lab Results Last 24 hrs: Laboratory Results - last 24 hr 10/03/20 10/03/20 10/03/20 Range/Units 10:32 10:32 10:32 WBC 5.43 (4.0-11.0) K/uL RBC 4.93 (4.50-5.90) M/uL Hgb 14.8 (13.0-17.0) g/dL Hct 41.3 (38.0-50.0) % MCV 83.8 (80.0-98.0) fL MCH 30.0 (27.0-32.0) pg MCHC 35.8 (31.0-37.0) g/dL RDW Std Deviation 38.8 (28.0-62.0) fl RDW Coeff of Mary Carmen 13 (11.0-15.0) % Plt Count 116 L (150-400) K/uL MPV 10.90 (7.40-12.00) fL Neut % (Auto) 83.6 H (48.0-80.0) % Lymph % (Auto) 12.3 L (16.0-40.0) % Craig % (Auto) 3.9 (0.0-15.0) % Eos % (Auto) 0.0 (0.0-7.0) % Baso % (Auto) 0.2 (0.0-1.5) % Neut # (Auto) 4.5 (1.4-5.7) K/uL Lymph # (Auto) 0.7 (0.6-2.4) K/uL Craig # (Auto) 0.2 (0.0-0.8) K/uL Eos # (Auto) 0.0 (0.0-0.7) K/uL Baso # (Auto) 0.0 (0.0-0.1) K/uL Nucleated RBC % 0.0 /100WBC Nucleated RBCs # 0 K/uL Sodium 130 L (136-148) mmol/L Potassium 4.2 (3.5-5.1) mmol/L Chloride 95 L (98-107) mmol/L Carbon Dioxide 21.5 (21.0-32.0) mmol/L BUN 18 (7.0-18.0) mg/dL Creatinine 1.3 (0.8-1.3) mg/dL Est Cr Clr Drug Dosing 65.05 mL/min Estimated GFR (MDRD) > 60.0 ml/min Glucose 91 (74-106) mg/dL Lactic Acid 1.0 (0.4-2.0) mmol/L Calcium 7.8 L (8.5-10.1) mg/dL Magnesium (1.8-2.4) mg/dL Total Bilirubin 0.5 (0.2-1.0) mg/dL AST 81 H (15-37) IU/L ALT 35 (14-63) IU/L Alkaline Phosphatase 58 (46-116) U/L Creatine Kinase (26-308) U/L Troponin I < 0.050 (0.000-0.056) ng/mL Total Protein 7.2 (6.4-8.2) g/dL Albumin 3.3 L (3.4-5.0) g/dL Globulin 3.9 (2.6-4.0) g/dL Albumin/Globulin Ratio 0.9 (0.9-1.6) Lipase (73-393) U/L Urine Color Urine Appearance Urine pH (5.0-8.0) Ur Specific [place] (1.001-1.035) Urine Protein (NEGATIVE) mg/dL Urine Glucose (UA) (NEGATIVE) mg/dL Urine Ketones (NEGATIVE) mg/dL Urine Occult Blood (NEGATIVE) Urine Nitrite (NEGATIVE) Urine Bilirubin (NEGATIVE) Urine Ictotest Urine Urobilinogen (<2.0) EU/dL Ur Leukocyte Esterase (NEGATIVE) Urine RBC (0-2/HPF) Urine WBC (0-5/HPF) Ur Epithelial Cells (NONE-FEW) Amorphous Sediment (NEGATIVE) Urine Bacteria (NEGATIVE) Urine Mucus (NONE-MOD) 10/03/20 10/03/20 10/03/20 Range/Units 10:32 14:30 14:53 WBC (4.0-11.0) K/uL RBC (4.50-5.90) M/uL Hgb (13.0-17.0) g/dL Hct (38.0-50.0) % MCV (80.0-98.0) fL MCH (27.0-32.0) pg MCHC (31.0-37.0) g/dL RDW Std Deviation (28.0-62.0) fl RDW Coeff of Mary Carmen (11.0-15.0) % Plt Count (150-400) K/uL MPV (7.40-12.00) fL Neut % (Auto) (48.0-80.0) % Lymph % (Auto) (16.0-40.0) % Craig % (Auto) (0.0-15.0) % Eos % (Auto) (0.0-7.0) % Baso % (Auto) (0.0-1.5) % Neut # (Auto) (1.4-5.7) K/uL Lymph # (Auto) (0.6-2.4) K/uL Craig # (Auto) (0.0-0.8) K/uL Eos # (Auto) (0.0-0.7) K/uL Baso # (Auto) (0.0-0.1) K/uL Nucleated RBC % /100WBC Nucleated RBCs # K/uL Sodium (136-148) mmol/L Potassium (3.5-5.1) mmol/L Chloride (98-107) mmol/L Carbon Dioxide (21.0-32.0) mmol/L BUN (7.0-18.0) mg/dL Creatinine (0.8-1.3) mg/dL Est Cr Clr Drug Dosing mL/min Estimated GFR (MDRD) ml/min Glucose (74-106) mg/dL Lactic Acid (0.4-2.0) mmol/L Calcium (8.5-10.1) mg/dL Magnesium (1.8-2.4) mg/dL Total Bilirubin (0.2-1.0) mg/dL AST (15-37) IU/L ALT (14-63) IU/L Alkaline Phosphatase (46-116) U/L Creatine Kinase 1839 H 1544 H (26-308) U/L Troponin I (0.000-0.056) ng/mL Total Protein (6.4-8.2) g/dL Albumin (3.4-5.0) g/dL Globulin (2.6-4.0) g/dL Albumin/Globulin Ratio (0.9-1.6) Lipase 351 (73-393) U/L Urine Color YELLOW Urine Appearance HAZY Urine pH 6.0 (5.0-8.0) Ur Specific [place] 1.025 (1.001-1.035) Urine Protein 30 H (NEGATIVE) mg/dL Urine Glucose (UA) NEGATIVE (NEGATIVE) mg/dL Urine Ketones >=80 (NEGATIVE) mg/dL Urine Occult Blood NEGATIVE (NEGATIVE) Urine Nitrite NEGATIVE (NEGATIVE) Urine Bilirubin SMALL H (NEGATIVE) Urine Ictotest NEGATIVE Urine Urobilinogen 0.2 (<2.0) EU/dL Ur Leukocyte Esterase NEGATIVE (NEGATIVE) Urine RBC 0-2 (0-2/HPF) Urine WBC 1-3 (0-5/HPF) Ur Epithelial Cells FEW (NONE-FEW) Amorphous Sediment LIGHT (NEGATIVE) Urine Bacteria 2+ H (NEGATIVE) Urine Mucus MODERATE (NONE-MOD) 10/04/20 10/04/20 Range/Units 06:25 06:25 WBC 5.38 (4.0-11.0) K/uL RBC 4.38 L (4.50-5.90) M/uL Hgb 13.0 (13.0-17.0) g/dL Hct 36.7 L (38.0-50.0) % MCV 83.8 (80.0-98.0) fL MCH 29.7 (27.0-32.0) pg MCHC 35.4 (31.0-37.0) g/dL RDW Std Deviation 38.5 (28.0-62.0) fl RDW Coeff of Mary Carmen 13 (11.0-15.0) % Plt Count 132 L (150-400) K/uL MPV 11.20 (7.40-12.00) fL Neut % (Auto) 76.2 (48.0-80.0) % Lymph % (Auto) 19.5 (16.0-40.0) % Craig % (Auto) 3.7 (0.0-15.0) % Eos % (Auto) 0.2 (0.0-7.0) % Baso % (Auto) 0.4 (0.0-1.5) % Neut # (Auto) 4.1 (1.4-5.7) K/uL Lymph # (Auto) 1.1 (0.6-2.4) K/uL Craig # (Auto) 0.2 (0.0-0.8) K/uL Eos # (Auto) 0.0 (0.0-0.7) K/uL Baso # (Auto) 0.0 (0.0-0.1) K/uL Nucleated RBC % 0.0 /100WBC Nucleated RBCs # 0 K/uL Sodium 134 L (136-148) mmol/L Potassium 4.0 (3.5-5.1) mmol/L Chloride 98 (98-107) mmol/L Carbon Dioxide 26.0 (21.0-32.0) mmol/L BUN 10 (7.0-18.0) mg/dL Creatinine 1.0 (0.8-1.3) mg/dL Est Cr Clr Drug Dosing 84.56 mL/min Estimated GFR (MDRD) > 60.0 ml/min Glucose 88 (74-106) mg/dL Lactic Acid (0.4-2.0) mmol/L Calcium 7.4 L (8.5-10.1) mg/dL Magnesium 1.8 (1.8-2.4) mg/dL Total Bilirubin (0.2-1.0) mg/dL AST (15-37) IU/L ALT (14-63) IU/L Alkaline Phosphatase (46-116) U/L Creatine Kinase 2351 H (26-308) U/L Troponin I (0.000-0.056) ng/mL Total Protein (6.4-8.2) g/dL Albumin (3.4-5.0) g/dL Globulin (2.6-4.0) g/dL Albumin/Globulin Ratio (0.9-1.6) Lipase (73-393) U/L Urine Color Urine Appearance Urine pH (5.0-8.0) Ur Specific [place] (1.001-1.035) Urine Protein (NEGATIVE) mg/dL Urine Glucose (UA) (NEGATIVE) mg/dL Urine Ketones (NEGATIVE) mg/dL Urine Occult Blood (NEGATIVE) Urine Nitrite (NEGATIVE) Urine Bilirubin (NEGATIVE) Urine Ictotest Urine Urobilinogen (<2.0) EU/dL Ur Leukocyte Esterase (NEGATIVE) Urine RBC (0-2/HPF) Urine WBC (0-5/HPF) Ur Epithelial Cells (NONE-FEW) Amorphous Sediment (NEGATIVE) Urine Bacteria (NEGATIVE) Urine Mucus (NONE-MOD) Result Diagrams: 10/04/20 06:25 10/04/20 06:25 Sepsis Event Note - Evaluation Sepsis Screening Result: Possible Sepsis Risk - Focused Exam Vital Signs: Vital Signs Temp Pulse Resp BP Pulse Ox 10/04/20 08:54 99.2 F 86 20 80/44 L 90 L 10/04/20 05:15 99.0 F 79 17 124/77 92 L 10/04/20 01:05 98.9 F 74 18 124/69 92 L 10/03/20 21:04 99.4 F 79 18 129/66 94 L - Problem List & Annotations (1) Acute respiratory failure with hypoxia SNOMED Code(s): 47785344, 933623900 Code(s): J96.01 - ACUTE RESPIRATORY FAILURE WITH HYPOXIA Status: Acute Current Visit: Yes (2) Rhabdomyolysis due to COVID-19 SNOMED Code(s): 600547377 Code(s): U07.1 - COVID-19; M62.82 - RHABDOMYOLYSIS Status: Acute Current Visit: Yes (3) COVID-19 SNOMED Code(s): 851471831 Code(s): U07.1 - COVID-19 Status: Acute Current Visit: Yes (4) Dehydration SNOMED Code(s): 57847571 Code(s): E86.0 - DEHYDRATION Status: Acute Current Visit: Yes (5) Migraines SNOMED Code(s): 60068756 Code(s): G43.909 - MIGRAINE, UNSP, NOT INTRACTABLE, WITHOUT STATUS MIGRAINOSUS Status: Chronic Current Visit: Yes (6) Diarrhea due to COVID-19 SNOMED Code(s): 031686408 Code(s): U07.1 - COVID-19; A08.39 - OTHER VIRAL ENTERITIS Status: Acute Current Visit: Yes - Problem List Review Problem List Initiated/Reviewed/Updated: Yes - My Orders Last 24 Hours: My Active Orders 10/03/20 Lunch Regular Diet [DIET] 10/03/20 13:24 Oxygen Therapy [RC] PRN Up With Assistance [RC] ASDIRECTED VTE/DVT Education [RC] PER UNIT ROUTINE Vital Signs [RC] Q4H Acetaminophen [TylenoL] 650 mg PO Q4H PRN Ondansetron [Zofran] 4 mg IVPUSH Q4H PRN Sodium Chloride 0.9% [Saline Flush] 2.5 ml FLUSH ASDIRECTED PRN Saline Lock Insert [OM.PC] Routine Resuscitation Status Routine 10/03/20 13:29 Intake and Output Strict [RC] Q12H 10/03/20 13:30 Enoxaparin [Lovenox] 40 mg SUBCUT Q24H 10/03/20 16:08 Patient Status [ADT] Stat 10/03/20 16:50 RT Incentive Spirometry [RC] Q1HWA RT Acapella [RESPCARE] Routine 10/04/20 08:08 Lactated Ringers [Ringers, Lactated] 1,000 ml IV ONETIME 10/04/20 09:00 Lactated Ringers [Ringers, Lactated] 1,000 ml IV .BOLUS 10/04/20 09:01 C DIFFICILE AG/TOXIN W/REFLEX [RM] Routine OCCULT BLOOD DIAGNOSTIC [OP] Routine STOOL CULTURE/SHIGA TOXIN [MREF] Routine - Plan Plan:: This 39-year-old male admitted with COVID-19 infection and rhabdomyolysis 1. Rhabdomyolysis -Given total of 3 L yesterday - CK this am 2300 - Given 1 L LR bolus this morning, -We will be cautious with IV fluids due to COVID-19 diagnosis -Monitor strict I's and O's - Hypotensive this am prior to bolus recheck 121/59 2. COVID-19 - Continues to feel ill, lethargic with body aches and malaise. -On second rounds patient hypoxic, oxygen 88% RA. Place on 2 L NC and sats improved to 93% - Due to acute hypoxic respiratory failure, will start Remdesivir and Dexamethasone. -I-S and acapella encouraged along with proning -Symptomatic relief with cough medicine and Zofran for nausea -Encourage p.o. intake of fluids as possible - Having diarrhea, black phillry reports this morning from patient, will add stool studies along with hemoccult. VTE prophylaxis: Lovenox GI prophylaxis: Protonix CODE STATUS: Full code Dispo: 2-3 days pending improvement
[2020-10-04] MEDS ORDERED: REMDESIVIR 200 MG in Sodium Chloride 0.9% 250 ML IV ONE (12:30)
[2020-10-04] MEDS: Enoxaparin 40 MG/0.4 ML Syringe SUBCUT SCH (12:47)
[2020-10-04] MEDS: Dexamethasone 4 MG Tab PO SCH (12:47)
[2020-10-04] MEDS: Pantoprazole 40 MG in Sodium Chloride 0.9% 10 ML IV SCH (12:49)
[2020-10-04] MEDS: Albuterol/Ipratropium 4 GM Inhalation Spray INH SCH ×3 (13:31→21:53)
[2020-10-04] MEDS: Benzonatate 100 MG Cap PO PRN (13:49)
[2020-10-04] MEDS ORDERED: Sodium Chloride 0.9% 1,000 ML IV ONE (17:35)
[2020-10-04] MEDS ORDERED: traZODone 50 MG Tab PO ONE (21:39)
[2020-10-05] MEDS: Albuterol/Ipratropium 4 GM Inhalation Spray INH SCH ×6 (02:05→22:53)
[2020-10-05 07:00] LABS: BLOOD UREA NITROGEN,BUN 11 mg/dL (7.0-18.0); CARBON DIOXIDE,CO2 25.2 mmol/L (21.0-32.0); CHLORIDE,CL 105 mmol/L (98-107); GLUCOSE RANDOM 134 mg/dL (74-106); POTASSIUM,K 3.7 mmol/L (3.5-5.1); SODIUM,NA 141 mmol/L (136-148)
--- NOTE | 2020-10-05 08:04 | PCM.PN ---
- General Info Date of Service: 10/05/20 Admission Dx/Problem (Free Text): Admission Diagnosis/Problem Admission Diagnosis/Problem Rhabdomyolysis Subjective Update: Reports he is feeling improved today continues to have mild shortness of breath and pleuritic chest pain has improved significantly. He ate breakfast, and omelette this morning and is feeling improved. He reports urine is lightening in color able tolerate diet and clear liquids much better. Denies any significant diarrhea but did have a loose stool this morning. Not dark in color. No other concerns at this time. Functional Status: Reports: Pain Controlled, Tolerating Diet, Ambulating, Urinating - Review of Systems General: Reports: Fatigue, Malaise. Denies: Fever, Weakness HEENT: Reports: No Symptoms. Denies: Headaches, Sore Throat Pulmonary: Reports: Shortness of Breath, Pleuritic Chest Pain, Cough. Denies: Sputum, Hemoptysis, Wheezing Cardiovascular: Reports: Dyspnea on Exertion. Denies: Chest Pain Gastrointestinal: Reports: Diarrhea (Improving), Vomiting. Denies: Abdominal Pain, Nausea Genitourinary: Reports: No Symptoms. Denies: Dysuria, Frequency Musculoskeletal: Reports: No Symptoms. Denies: Neck Pain, Shoulder Pain Skin: Reports: No Symptoms Neurological: Reports: No Symptoms Psychiatric: Reports: No Symptoms - Patient Data Vitals - Most Recent: Last Vital Signs Temp 98.4 F 10/05/20 04:13 Pulse 84 10/05/20 04:13 Resp 16 10/05/20 04:13 BP 129/65 10/05/20 04:13 Pulse Ox 93 L 10/05/20 04:13 Weight - Most Recent: 81.964 kg I&O - Last 24 Hours: Intake & Output 10/04/20 10/05/20 10/05/20 22:59 06:59 14:59 Intake Total 600 1120 Output Total 1800 1600 Balance -1200 -480 Lab Results Last 24 Hours: Laboratory Results - last 24 hr 10/04/20 10/05/20 10/05/20 Range/Units 15:10 06:10 06:10 WBC 3.59 L (4.0-11.0) K/uL RBC 4.62 (4.50-5.90) M/uL Hgb 13.6 (13.0-17.0) g/dL Hct 38.7 (38.0-50.0) % MCV 83.8 (80.0-98.0) fL MCH 29.4 (27.0-32.0) pg MCHC 35.1 (31.0-37.0) g/dL RDW Std Deviation 38.4 (28.0-62.0) fl RDW Coeff of Mary Carmen 13 (11.0-15.0) % Plt Count 169 (150-400) K/uL MPV 11.00 (7.40-12.00) fL Neut % (Auto) 76.6 (48.0-80.0) % Lymph % (Auto) 17.5 (16.0-40.0) % [place] % (Auto) 5.6 (0.0-15.0) % Eos % (Auto) 0.0 (0.0-7.0) % Baso % (Auto) 0.3 (0.0-1.5) % Neut # (Auto) 2.8 (1.4-5.7) K/uL Lymph # (Auto) 0.6 (0.6-2.4) K/uL [place] # (Auto) 0.2 (0.0-0.8) K/uL Eos # (Auto) 0.0 (0.0-0.7) K/uL Baso # (Auto) 0.0 (0.0-0.1) K/uL Nucleated RBC % 0.0 /100WBC Nucleated RBCs # 0 K/uL Sodium 141 (136-148) mmol/L Potassium 3.7 (3.5-5.1) mmol/L Chloride 105 (98-107) mmol/L Carbon Dioxide 25.2 (21.0-32.0) mmol/L BUN 11 (7.0-18.0) mg/dL Creatinine 0.9 (0.8-1.3) mg/dL Est Cr Clr Drug Dosing 93.96 mL/min Estimated GFR (MDRD) > 60.0 ml/min Glucose 134 H (74-106) mg/dL Calcium 8.1 L (8.5-10.1) mg/dL Total Bilirubin 0.4 (0.2-1.0) mg/dL AST 78 H (15-37) IU/L ALT 41 (14-63) IU/L Alkaline Phosphatase 54 (46-116) U/L Creatine Kinase 2437 H 1546 H (26-308) U/L Total Protein 6.3 L (6.4-8.2) g/dL Albumin 2.6 L (3.4-5.0) g/dL Globulin 3.7 (2.6-4.0) g/dL Albumin/Globulin Ratio 0.7 L (0.9-1.6) Med Orders - Current: Current Medications Acetaminophen (Acetaminophen 325 Mg Tab) 650 mg PO Q4H PRN PRN Reason: Pain (Mild 1-3)/fever Last Admin: 10/04/20 09:14 Dose: 650 mg Documented by: Albuterol/Ipratropium (Albuterol/Ipratropium 4 Gm Inhalation [place]) 0 gm INH Q4HRRT [facility] Last Admin: 10/05/20 05:50 Dose: 2 puff Documented by: Benzonatate (Benzonatate 100 Mg Cap) 200 mg PO TID PRN PRN Reason: Cough Last Admin: 10/04/20 13:49 Dose: 200 mg Documented by: Dexamethasone (Dexamethasone 4 Mg Tab) 6 mg PO DAILY [facility] Last Admin: 10/04/20 12:47 Dose: 6 mg Documented by: Enoxaparin Sodium (Enoxaparin 40 Mg/0.4 Ml Syringe) 40 mg SUBCUT Q24H [facility] Last Admin: 10/04/20 12:47 Dose: 40 mg Documented by: Guaifenesin/Codeine Phosphate (Codeine/Guaifenesin 10-100 Mg/5 Ml Syrup 5 Ml Cup) 5 ml PO Q6H PRN PRN Reason: Cough Last Admin: 10/03/20 20:25 Dose: 5 ml Documented by: Pantoprazole Sodium 40 mg/ (Sodium Chloride) 10 mls @ 300 mls/hr IV Q24H [facility] Last Admin: 10/04/20 12:49 Dose: 300 mls/hr Documented by: Remdesivir 100 mg/ Sodium (Chloride) 100 mls @ 100 mls/hr IV Q24H [facility] Stop: 10/08/20 12:59 Ondansetron HCl (Ondansetron 4 Mg/2 Ml Sdv) 4 mg IVPUSH Q4H PRN PRN Reason: Nausea Last Admin: 10/03/20 18:15 Dose: 4 mg Documented by: Sodium Chloride (Sodium Chloride 0.9% 2.5 Ml Syringe) 2.5 ml FLUSH ASDIRECTED PRN PRN Reason: Keep Vein Open Discontinued Medications Acetaminophen (Acetaminophen 500 Mg Tab) 1,000 mg PO ONETIME ONE Stop: 10/03/20 12:41 Last Admin: 10/03/20 13:00 Dose: 1,000 mg Documented by: Sodium Chloride (Normal Saline) 1,000 mls @ 999 mls/hr IV STAT ONE Stop: 10/03/20 11:29 Last Admin: 10/03/20 10:36 Dose: 999 mls/hr Documented by: Sodium Chloride (Normal Saline) 1,000 mls @ 999 mls/hr IV STAT ONE Stop: 10/03/20 12:45 Last Admin: 10/03/20 12:59 Dose: 999 mls/hr Documented by: Lactated Ringer's (Ringers, Lactated) 1,000 mls @ 150 mls/hr IV Q6HR [facility] Stop: 10/03/20 21:30 Last Admin: 10/03/20 18:51 Dose: Not Given Documented by: Lactated Ringer's (Ringers, Lactated) 1,000 mls @ 150 mls/hr IV ONETIME ONE Stop: 10/04/20 14:47 Last Admin: 10/04/20 08:43 Dose: 150 mls/hr Documented by: Lactated Ringer's (Ringers, Lactated) 1,000 mls @ 999 mls/hr IV .BOLUS ONE Stop: 10/04/20 10:00 Last Admin: 10/04/20 09:16 Dose: 999 mls/hr Documented by: Remdesivir 200 mg/ Sodium (Chloride) 250 mls @ 250 mls/hr IV ONETIME ONE Stop: 10/04/20 13:29 Last Admin: 10/04/20 13:00 Dose: 250 mls/hr Documented by: Sodium Chloride (Normal Saline) 1,000 mls @ 150 mls/hr IV ONETIME ONE Stop: 10/05/20 00:14 Last Admin: 10/04/20 17:57 Dose: 150 mls/hr Documented by: Ondansetron HCl (Ondansetron 4 Mg/2 Ml Sdv) 4 mg IVPUSH ONETIME ONE Stop: 10/03/20 10:30 Last Admin: 10/03/20 10:37 Dose: 4 mg Documented by: Ondansetron HCl (Ondansetron 4 Mg/2 Ml Sdv) 4 mg IVPUSH ONETIME ONE Stop: 10/03/20 10:31 Last Admin: 10/03/20 10:36 Dose: Not Given Documented by: Trazodone HCl (Trazodone 50 Mg Tab) 50 mg PO ONETIME ONE Stop: 10/04/20 21:40 Last Admin: 10/04/20 21:53 Dose: 50 mg Documented by: - Exam Quality Assessment: Supplemental Oxygen, DVT Prophylaxis General: Alert, Oriented, Cooperative, No Acute Distress Lungs: Crackles (Bibasilar fine stable since admission). No: Normal Respiratory Effort (Mild dyspnea) Cardiovascular: Regular Rate, Regular Rhythm, No Murmurs GI/Abdominal Exam: Normal Bowel Sounds, Soft, Non-Tender Back Exam: Normal Inspection, Full Range of Motion Extremities: Normal Inspection, Normal Range of Motion, Non-Tender, No Pedal Edema Neurological: No New Focal Deficit Psy/Mental Status: Alert, Normal Affect, Normal Mood - Patient Data Lab Results Last 24 hrs: Laboratory Results - last 24 hr 10/04/20 10/05/20 10/05/20 Range/Units 15:10 06:10 06:10 WBC 3.59 L (4.0-11.0) K/uL RBC 4.62 (4.50-5.90) M/uL Hgb 13.6 (13.0-17.0) g/dL Hct 38.7 (38.0-50.0) % MCV 83.8 (80.0-98.0) fL MCH 29.4 (27.0-32.0) pg MCHC 35.1 (31.0-37.0) g/dL RDW Std Deviation 38.4 (28.0-62.0) fl RDW Coeff of Mary Carmen 13 (11.0-15.0) % Plt Count 169 (150-400) K/uL MPV 11.00 (7.40-12.00) fL Neut % (Auto) 76.6 (48.0-80.0) % Lymph % (Auto) 17.5 (16.0-40.0) % [place] % (Auto) 5.6 (0.0-15.0) % Eos % (Auto) 0.0 (0.0-7.0) % Baso % (Auto) 0.3 (0.0-1.5) % Neut # (Auto) 2.8 (1.4-5.7) K/uL Lymph # (Auto) 0.6 (0.6-2.4) K/uL [place] # (Auto) 0.2 (0.0-0.8) K/uL Eos # (Auto) 0.0 (0.0-0.7) K/uL Baso # (Auto) 0.0 (0.0-0.1) K/uL Nucleated RBC % 0.0 /100WBC Nucleated RBCs # 0 K/uL Sodium 141 (136-148) mmol/L Potassium 3.7 (3.5-5.1) mmol/L Chloride 105 (98-107) mmol/L Carbon Dioxide 25.2 (21.0-32.0) mmol/L BUN 11 (7.0-18.0) mg/dL Creatinine 0.9 (0.8-1.3) mg/dL Est Cr Clr Drug Dosing 93.96 mL/min Estimated GFR (MDRD) > 60.0 ml/min Glucose 134 H (74-106) mg/dL Calcium 8.1 L (8.5-10.1) mg/dL Total Bilirubin 0.4 (0.2-1.0) mg/dL AST 78 H (15-37) IU/L ALT 41 (14-63) IU/L Alkaline Phosphatase 54 (46-116) U/L Creatine Kinase 2437 H 1546 H (26-308) U/L Total Protein 6.3 L (6.4-8.2) g/dL Albumin 2.6 L (3.4-5.0) g/dL Globulin 3.7 (2.6-4.0) g/dL Albumin/Globulin Ratio 0.7 L (0.9-1.6) Result Diagrams: 10/05/20 06:10 10/05/20 06:10 Sepsis Event Note - Evaluation Sepsis Screening Result: No Definite Risk - Focused Exam Vital Signs: Vital Signs Temp Pulse Resp BP Pulse Ox 10/05/20 04:13 98.4 F 84 16 129/65 93 L 10/05/20 00:06 98.4 F 86 16 127/69 93 L 10/04/20 20:23 98.2 F 88 17 122/64 94 L - Problem List & Annotations (1) Acute respiratory failure with hypoxia SNOMED Code(s): 49003628, 172609620 Code(s): J96.01 - ACUTE RESPIRATORY FAILURE WITH HYPOXIA Status: Acute Current Visit: Yes (2) Rhabdomyolysis due to COVID-19 SNOMED Code(s): 041089862 Code(s): U07.1 - COVID-19; M62.82 - RHABDOMYOLYSIS Status: Acute Current Visit: Yes (3) COVID-19 SNOMED Code(s): 854145335 Code(s): U07.1 - COVID-19 Status: Acute Current Visit: Yes (4) Dehydration SNOMED Code(s): 11616198 Code(s): E86.0 - DEHYDRATION Status: Acute Current Visit: Yes (5) Migraines SNOMED Code(s): 38626046 Code(s): G43.909 - MIGRAINE, UNSP, NOT INTRACTABLE, WITHOUT STATUS MIGRAINOSUS Status: Chronic Current Visit: Yes (6) Diarrhea due to COVID-19 SNOMED Code(s): 377201744 Code(s): U07.1 - COVID-19; A08.39 - OTHER VIRAL ENTERITIS Status: Acute Current Visit: Yes - Problem List Review Problem List Initiated/Reviewed/Updated: Yes - My Orders Last 24 Hours: My Active Orders 10/04/20 09:01 C DIFFICILE AG/TOXIN W/REFLEX [RM] Routine OCCULT BLOOD DIAGNOSTIC [OP] Routine STOOL CULTURE/SHIGA TOXIN [MREF] Routine 10/04/20 12:00 dexAMETHasone 6 mg PO DAILY 10/04/20 12:16 RT Post Treatment Assessment [RC] Click to Edit RT Pre-Treatment Assessment [RC] Click to Edit Benzonatate [Tessalon Perles] 200 mg PO TID PRN 10/04/20 14:00 Albuterol/Ipratropium [Combivent Respimat] See Dose Instructions INH Q4HRRT 10/05/20 12:00 Remdesivir 100 mg Sodium Chloride 0.9% [Normal Saline] 100 ml IV Q24H 10/06/20 05:11 CBC WITH AUTO DIFF [HEME] AM CMP [COMPREHENSIVE METABOLIC PN,CMP] [CHEM] AM CPK [CREATINE KINASE,CK] [CHEM] AM 10/07/20 05:11 CBC WITH AUTO DIFF [HEME] AM CMP [COMPREHENSIVE METABOLIC PN,CMP] [CHEM] AM CPK [CREATINE KINASE,CK] [CHEM] AM - Plan Plan:: This 39-year-old male admitted with COVID-19 infection and rhabdomyolysis 1. Rhabdomyolysis -Steadily improving -CK 1500 this morning negative approximately 1 L since admission -Give 500 mL of LR -We will be cautious with IV fluids due to COVID-19 diagnosis -Monitor strict I's and O's -Urine lightening up no VIKTOR noted 2. Acute hypoxic respiratory failure/COVID-19 -Steadily improving continues to need 2 L nasal cannula -Oxygen to keep sats greater than 92% -Continue remdesivir and Dexamethasone. -I-S and acapella encouraged along with proning -Symptomatic relief with cough medicine and Zofran for nausea -Encourage p.o. intake of fluids as possible -Diarrhea improving, negative Hemoccult other stool culture pending -Lovenox for VT prophylaxis -Combivent inhaler every 4 hours -Monitor LFTs daily while on remdesivir treatment VTE prophylaxis: Lovenox GI prophylaxis: Protonix CODE STATUS: Full code Dispo: 2-3 days pending improvement
[2020-10-05] MEDS: Dexamethasone 4 MG Tab PO SCH (09:30)
[2020-10-05] MEDS ORDERED: Lactated Ringers 500 ML IV SCH (11:15)
[2020-10-05] MEDS: REMDESIVIR 100 MG in Sodium Chloride 0.9% 100 ML IV SCH (12:02)
[2020-10-05] MEDS: Pantoprazole 40 MG in Sodium Chloride 0.9% 10 ML IV SCH (13:12)
[2020-10-05] MEDS: Enoxaparin 40 MG/0.4 ML Syringe SUBCUT SCH (13:12)
[2020-10-05] MEDS ORDERED: traZODone 50 MG Tab PO PRN (16:25)
[2020-10-06] MEDS: Albuterol/Ipratropium 4 GM Inhalation Spray INH SCH ×6 (02:45→22:11)
[2020-10-06 07:05] LABS: BLOOD UREA NITROGEN,BUN 15 mg/dL (7.0-18.0); CARBON DIOXIDE,CO2 25.9 mmol/L (21.0-32.0); CHLORIDE,CL 104 mmol/L (98-107); GLUCOSE RANDOM 158 mg/dL (74-106); POTASSIUM,K 3.4 mmol/L (3.5-5.1); SODIUM,NA 140 mmol/L (136-148)
--- NOTE | 2020-10-06 07:59 | PCM.PN ---
- General Info Date of Service: 10/06/20 Admission Dx/Problem (Free Text): Admission Diagnosis/Problem Admission Diagnosis/Problem Rhabdomyolysis Subjective Update: Continues to feel generalized malaise and fatigue. Having body aches. Tolerating diet better and is eating and drinking voiding well diarrhea has improved. Denies any chest pain but has pleuritic pain with coughing and deep breathing. Continues to have shortness of breath and mildly productive cough. Continues to need 2 L of oxygen continuously to keep sats greater than 90%. Functional Status: Reports: Pain Controlled, Tolerating Diet, Ambulating, Urinating - Review of Systems General: Reports: Weakness, Fatigue HEENT: Reports: No Symptoms. Denies: Headaches, Sore Throat, Visual Changes Pulmonary: Reports: Shortness of Breath, Pleuritic Chest Pain, Cough, Sputum. Denies: Wheezing Cardiovascular: Reports: Dyspnea on Exertion Gastrointestinal: Reports: No Symptoms, Nausea, Vomiting. Denies: Abdominal Pain Genitourinary: Reports: No Symptoms. Denies: Dysuria, Frequency, Burning Musculoskeletal: Reports: Other (All of her joint pain has chronic back pain intermittently at baseline) Skin: Reports: No Symptoms Neurological: Reports: No Symptoms Psychiatric: Reports: No Symptoms - Patient Data Vitals - Most Recent: Last Vital Signs Temp 97.3 F 10/06/20 02:47 Pulse 82 10/06/20 02:47 Resp 20 10/06/20 02:47 BP 109/62 10/06/20 02:47 Pulse Ox 93 L 10/06/20 02:47 Weight - Most Recent: 81.964 kg I&O - Last 24 Hours: Intake & Output 10/05/20 10/06/20 10/06/20 22:59 06:59 14:59 Intake Total 760 800 Output Total 600 550 Balance 160 250 Lab Results Last 24 Hours: Laboratory Results - last 24 hr 10/06/20 10/06/20 Range/Units 05:25 05:25 WBC 7.75 (4.0-11.0) K/uL RBC 4.58 (4.50-5.90) M/uL Hgb 13.7 (13.0-17.0) g/dL Hct 38.4 (38.0-50.0) % MCV 83.8 (80.0-98.0) fL MCH 29.9 (27.0-32.0) pg MCHC 35.7 (31.0-37.0) g/dL RDW Std Deviation 38.6 (28.0-62.0) fl RDW Coeff of Mary Carmen 13 (11.0-15.0) % Plt Count 203 (150-400) K/uL MPV 11.00 (7.40-12.00) fL Add Manual Diff YES Neutrophils % (Manual) 77 (48.0-80.0) % Band Neutrophils % 9 % Lymphocytes % (Manual) 10 L (16.0-40.0) % Monocytes % (Manual) 4 (0.0-15.0) % Nucleated RBC % 0.0 /100WBC Absolute Seg Neuts 6.0 H (1.4-5.7) Band Neutrophils # 0.7 Lymphocytes # (Manual) 0.8 (0.6-2.4) Monocytes # (Manual) 0.3 (0.0-0.8) Nucleated RBCs # 0 K/uL Sodium 140 (136-148) mmol/L Potassium 3.4 L (3.5-5.1) mmol/L Chloride 104 (98-107) mmol/L Carbon Dioxide 25.9 (21.0-32.0) mmol/L BUN 15 (7.0-18.0) mg/dL Creatinine 1.0 (0.8-1.3) mg/dL Est Cr Clr Drug Dosing 84.56 mL/min Estimated GFR (MDRD) > 60.0 ml/min Glucose 158 H (74-106) mg/dL Calcium 7.9 L (8.5-10.1) mg/dL Total Bilirubin 0.4 (0.2-1.0) mg/dL AST 53 H (15-37) IU/L ALT 48 (14-63) IU/L Alkaline Phosphatase 49 (46-116) U/L Creatine Kinase 615 H (26-308) U/L Total Protein 6.1 L (6.4-8.2) g/dL Albumin 2.6 L (3.4-5.0) g/dL Globulin 3.5 (2.6-4.0) g/dL Albumin/Globulin Ratio 0.7 L (0.9-1.6) [place] Results Last 24 Hours: Microbiology 10/05/20 09:40 C. difficile Antigen & Toxins A,B - Final Stool / Feces 10/05/20 09:40 Stool Occult Blood (CARLITOS) - Final Stool / Feces NEGATIVE OCCULT BLOOD REFERENCE RANGE: NEGATIVE Med Orders - Current: Current Medications Acetaminophen (Acetaminophen 325 Mg Tab) 650 mg PO Q4H PRN PRN Reason: Pain (Mild 1-3)/fever Last Admin: 10/04/20 09:14 Dose: 650 mg Documented by: Albuterol/Ipratropium (Albuterol/Ipratropium 4 Gm Inhalation [place]) 0 gm INH Q4HRRT [facility] Last Admin: 10/06/20 06:26 Dose: Not Given Documented by: Benzonatate (Benzonatate 100 Mg Cap) 200 mg PO TID PRN PRN Reason: Cough Last Admin: 10/04/20 13:49 Dose: 200 mg Documented by: Dexamethasone (Dexamethasone 4 Mg Tab) 6 mg PO DAILY [facility] Last Admin: 10/05/20 09:30 Dose: 6 mg Documented by: Enoxaparin Sodium (Enoxaparin 40 Mg/0.4 Ml Syringe) 40 mg SUBCUT Q24H [facility] Last Admin: 10/05/20 13:12 Dose: 40 mg Documented by: Guaifenesin/Codeine Phosphate (Codeine/Guaifenesin 10-100 Mg/5 Ml Syrup 5 Ml Cup) 5 ml PO Q6H PRN PRN Reason: Cough Last Admin: 10/03/20 20:25 Dose: 5 ml Documented by: Pantoprazole Sodium 40 mg/ (Sodium Chloride) 10 mls @ 300 mls/hr IV Q24H [facility] Last Admin: 10/05/20 13:12 Dose: 300 mls/hr Documented by: Remdesivir 100 mg/ Sodium (Chloride) 100 mls @ 100 mls/hr IV Q24H [facility] Stop: 10/08/20 12:59 Last Admin: 10/05/20 12:02 Dose: 100 mls/hr Documented by: Lactated Ringer's (Ringers, Lactated) 500 mls @ 999 mls/hr IV .BOLUS [facility] Last Admin: 10/05/20 11:30 Dose: 999 mls/hr Documented by: Ondansetron HCl (Ondansetron 4 Mg/2 Ml Sdv) 4 mg IVPUSH Q4H PRN PRN Reason: Nausea Last Admin: 10/03/20 18:15 Dose: 4 mg Documented by: Sodium Chloride (Sodium Chloride 0.9% 2.5 Ml Syringe) 2.5 ml FLUSH ASDIRECTED PRN PRN Reason: Keep Vein Open Trazodone HCl (Trazodone 50 Mg Tab) 50 mg PO BEDTIME PRN PRN Reason: sleep Discontinued Medications Acetaminophen (Acetaminophen 500 Mg Tab) 1,000 mg PO ONETIME ONE Stop: 10/03/20 12:41 Last Admin: 10/03/20 13:00 Dose: 1,000 mg Documented by: Sodium Chloride (Normal Saline) 1,000 mls @ 999 mls/hr IV STAT ONE Stop: 10/03/20 11:29 Last Admin: 10/03/20 10:36 Dose: 999 mls/hr Documented by: Sodium Chloride (Normal Saline) 1,000 mls @ 999 mls/hr IV STAT ONE Stop: 10/03/20 12:45 Last Admin: 10/03/20 12:59 Dose: 999 mls/hr Documented by: Lactated Ringer's (Ringers, Lactated) 1,000 mls @ 150 mls/hr IV Q6HR [facility] Stop: 10/03/20 21:30 Last Admin: 10/03/20 18:51 Dose: Not Given Documented by: Lactated Ringer's (Ringers, Lactated) 1,000 mls @ 150 mls/hr IV ONETIME ONE Stop: 10/04/20 14:47 Last Admin: 10/04/20 08:43 Dose: 150 mls/hr Documented by: Lactated Ringer's (Ringers, Lactated) 1,000 mls @ 999 mls/hr IV .BOLUS ONE Stop: 10/04/20 10:00 Last Admin: 10/04/20 09:16 Dose: 999 mls/hr Documented by: Remdesivir 200 mg/ Sodium (Chloride) 250 mls @ 250 mls/hr IV ONETIME ONE Stop: 10/04/20 13:29 Last Admin: 10/04/20 13:00 Dose: 250 mls/hr Documented by: Sodium Chloride (Normal Saline) 1,000 mls @ 150 mls/hr IV ONETIME ONE Stop: 10/05/20 00:14 Last Admin: 10/04/20 17:57 Dose: 150 mls/hr Documented by: Ondansetron HCl (Ondansetron 4 Mg/2 Ml Sdv) 4 mg IVPUSH ONETIME ONE Stop: 10/03/20 10:30 Last Admin: 10/03/20 10:37 Dose: 4 mg Documented by: Ondansetron HCl (Ondansetron 4 Mg/2 Ml Sdv) 4 mg IVPUSH ONETIME ONE Stop: 10/03/20 10:31 Last Admin: 10/03/20 10:36 Dose: Not Given Documented by: Trazodone HCl (Trazodone 50 Mg Tab) 50 mg PO ONETIME ONE Stop: 10/04/20 21:40 Last Admin: 10/04/20 21:53 Dose: 50 mg Documented by: - Exam General: Alert, Oriented, Cooperative, No Acute Distress HEENT: Mucous Membr. Moist/[place] Neck: Supple Lungs: Crackles (Bibasilar, fine) Cardiovascular: Regular Rate, Regular Rhythm GI/Abdominal Exam: Normal Bowel Sounds, Soft, Non-Tender, No Organomegaly Extremities: Normal Inspection, Normal Range of Motion, Non-Tender, No Pedal Edema Wound/Incisions: Healing Well Neurological: No New Focal Deficit Psy/Mental Status: Alert, Normal Affect, Normal Mood - Patient Data Lab Results Last 24 hrs: Laboratory Results - last 24 hr 10/06/20 10/06/20 Range/Units 05:25 05:25 WBC 7.75 (4.0-11.0) K/uL RBC 4.58 (4.50-5.90) M/uL Hgb 13.7 (13.0-17.0) g/dL Hct 38.4 (38.0-50.0) % MCV 83.8 (80.0-98.0) fL MCH 29.9 (27.0-32.0) pg MCHC 35.7 (31.0-37.0) g/dL RDW Std Deviation 38.6 (28.0-62.0) fl RDW Coeff of Mary Carmen 13 (11.0-15.0) % Plt Count 203 (150-400) K/uL MPV 11.00 (7.40-12.00) fL Add Manual Diff YES Neutrophils % (Manual) 77 (48.0-80.0) % Band Neutrophils % 9 % Lymphocytes % (Manual) 10 L (16.0-40.0) % Monocytes % (Manual) 4 (0.0-15.0) % Nucleated RBC % 0.0 /100WBC Absolute Seg Neuts 6.0 H (1.4-5.7) Band Neutrophils # 0.7 Lymphocytes # (Manual) 0.8 (0.6-2.4) Monocytes # (Manual) 0.3 (0.0-0.8) Nucleated RBCs # 0 K/uL Sodium 140 (136-148) mmol/L Potassium 3.4 L (3.5-5.1) mmol/L Chloride 104 (98-107) mmol/L Carbon Dioxide 25.9 (21.0-32.0) mmol/L BUN 15 (7.0-18.0) mg/dL Creatinine 1.0 (0.8-1.3) mg/dL Est Cr Clr Drug Dosing 84.56 mL/min Estimated GFR (MDRD) > 60.0 ml/min Glucose 158 H (74-106) mg/dL Calcium 7.9 L (8.5-10.1) mg/dL Total Bilirubin 0.4 (0.2-1.0) mg/dL AST 53 H (15-37) IU/L ALT 48 (14-63) IU/L Alkaline Phosphatase 49 (46-116) U/L Creatine Kinase 615 H (26-308) U/L Total Protein 6.1 L (6.4-8.2) g/dL Albumin 2.6 L (3.4-5.0) g/dL Globulin 3.5 (2.6-4.0) g/dL Albumin/Globulin Ratio 0.7 L (0.9-1.6) Result Diagrams: 10/06/20 05:25 10/06/20 05:25 [place] Results Last 24 hrs: Microbiology 10/05/20 09:40 C. difficile Antigen & Toxins A,B - Final Stool / Feces 10/05/20 09:40 Stool Occult Blood (CARLITOS) - Final Stool / Feces NEGATIVE OCCULT BLOOD REFERENCE RANGE: NEGATIVE Sepsis Event Note - Evaluation Sepsis Screening Result: No Definite Risk - Focused Exam Vital Signs: Vital Signs Temp Pulse Resp BP Pulse Ox 10/06/20 02:47 97.3 F 82 20 109/62 93 L 10/05/20 22:55 97.6 F 89 18 121/60 93 L - Problem List & Annotations (1) Acute respiratory failure with hypoxia SNOMED Code(s): 11792094, 918630291 Code(s): J96.01 - ACUTE RESPIRATORY FAILURE WITH HYPOXIA Status: Acute Current Visit: Yes (2) Rhabdomyolysis due to COVID-19 SNOMED Code(s): 313059277 Code(s): U07.1 - COVID-19; M62.82 - RHABDOMYOLYSIS Status: Acute Current Visit: Yes (3) COVID-19 SNOMED Code(s): 310587869 Code(s): U07.1 - COVID-19 Status: Acute Current Visit: Yes (4) Dehydration SNOMED Code(s): 65319962 Code(s): E86.0 - DEHYDRATION Status: Acute Current Visit: Yes (5) Migraines SNOMED Code(s): 61185974 Code(s): G43.909 - MIGRAINE, UNSP, NOT INTRACTABLE, WITHOUT STATUS MIGRAINOSUS Status: Chronic Current Visit: Yes (6) Diarrhea due to COVID-19 SNOMED Code(s): 186677325 Code(s): U07.1 - COVID-19; A08.39 - OTHER VIRAL ENTERITIS Status: Acute Current Visit: Yes - Problem List Review Problem List Initiated/Reviewed/Updated: Yes - My Orders Last 24 Hours: My Active Orders 10/05/20 09:40 STOOL CULTURE/SHIGA TOXIN [MREF] Routine 10/05/20 11:15 Lactated Ringers [Ringers, Lactated] 500 ml IV .BOLUS 10/05/20 12:00 Remdesivir 100 mg Sodium Chloride 0.9% [Normal Saline] 100 ml IV Q24H 10/05/20 16:25 traZODone 50 mg PO BEDTIME PRN 10/07/20 05:11 CBC WITH AUTO DIFF [HEME] AM CMP [COMPREHENSIVE METABOLIC PN,CMP] [CHEM] AM CPK [CREATINE KINASE,CK] [CHEM] AM - Plan Plan:: This 39-year-old male admitted with COVID-19 infection and rhabdomyolysis 1. Rhabdomyolysis -Steadily improving -CK 615 -We will be cautious with IV fluids due to COVID-19 diagnosis -Monitor strict I's and O's -Urine lightening up no VIKTOR noted 2. Acute hypoxic respiratory failure/COVID-19 -Steadily improving continues to need 2 L nasal cannula -Oxygen to keep sats greater than 92% -Continue remdesivir and Dexamethasone. -I-S and acapella encouraged along with proning -Symptomatic relief with cough medicine and Zofran for nausea -Encourage p.o. intake of fluids as possible -Diarrhea improving, negative Hemoccult other stool culture pending -Lovenox for VT prophylaxis -Combivent inhaler every 4 hours -Monitor LFTs daily while on remdesivir treatment VTE prophylaxis: Lovenox GI prophylaxis: Protonix CODE STATUS: Full code Dispo: 2-3 days pending improvement
[2020-10-06] MEDS ORDERED: Potassium Chloride 20 MEQ Tab.ER PO ONE (08:53)
[2020-10-06] MEDS: Dexamethasone 4 MG Tab PO SCH (09:25)
[2020-10-06] MEDS: Benzonatate 100 MG Cap PO PRN (09:35)
[2020-10-06] MEDS: Meloxicam 7.5 MG Tab PO SCH (10:38)
[2020-10-06] MEDS: REMDESIVIR 100 MG in Sodium Chloride 0.9% 100 ML IV SCH (13:14)
[2020-10-06] MEDS: Enoxaparin 40 MG/0.4 ML Syringe SUBCUT SCH (13:15)
[2020-10-06] MEDS: Pantoprazole 40 MG in Sodium Chloride 0.9% 10 ML IV SCH (13:15)
[2020-10-07] MEDS: Albuterol/Ipratropium 4 GM Inhalation Spray INH SCH ×3 (02:56→09:24)
[2020-10-07 07:27] LABS: BLOOD UREA NITROGEN,BUN 16 mg/dL (7.0-18.0); CARBON DIOXIDE,CO2 26.9 mmol/L (21.0-32.0); CHLORIDE,CL 106 mmol/L (98-107); GLUCOSE RANDOM 127 mg/dL (74-106); POTASSIUM,K 3.7 mmol/L (3.5-5.1); SODIUM,NA 140 mmol/L (136-148)
--- NOTE | 2020-10-07 08:16 | PCM.PN ---
- General Info Date of Service: 10/07/20 Admission Dx/Problem (Free Text): Admission Diagnosis/Problem Admission Diagnosis/Problem Rhabdomyolysis - Patient Data Vitals - Most Recent: Last Vital Signs Temp 97.1 F 10/07/20 02:57 Pulse 85 10/07/20 02:57 Resp 18 10/07/20 02:57 BP 126/83 10/07/20 02:57 Pulse Ox 94 L 10/07/20 02:57 Weight - Most Recent: 81.964 kg I&O - Last 24 Hours: Intake & Output 10/06/20 10/07/20 10/07/20 22:59 06:59 14:59 Intake Total 1100 850 Output Total 250 550 Balance 850 300 Lab Results Last 24 Hours: Laboratory Results - last 24 hr 10/07/20 10/07/20 Range/Units 05:18 05:18 WBC 7.13 (4.0-11.0) K/uL RBC 4.42 L (4.50-5.90) M/uL Hgb 13.1 (13.0-17.0) g/dL Hct 37.1 L (38.0-50.0) % MCV 83.9 (80.0-98.0) fL MCH 29.6 (27.0-32.0) pg MCHC 35.3 (31.0-37.0) g/dL RDW Std Deviation 38.4 (28.0-62.0) fl RDW Coeff of Mary Carmen 13 (11.0-15.0) % Plt Count 205 (150-400) K/uL MPV 11.30 (7.40-12.00) fL Neut % (Auto) 82.1 H (48.0-80.0) % Lymph % (Auto) 9.0 L (16.0-40.0) % Barry % (Auto) 8.8 (0.0-15.0) % Eos % (Auto) 0.0 (0.0-7.0) % Baso % (Auto) 0.1 (0.0-1.5) % Neut # (Auto) 5.9 H (1.4-5.7) K/uL Lymph # (Auto) 0.6 (0.6-2.4) K/uL Barry # (Auto) 0.6 (0.0-0.8) K/uL Eos # (Auto) 0.0 (0.0-0.7) K/uL Baso # (Auto) 0.0 (0.0-0.1) K/uL Nucleated RBC % 0.0 /100WBC Nucleated RBCs # 0 K/uL Sodium 140 (136-148) mmol/L Potassium 3.7 (3.5-5.1) mmol/L Chloride 106 (98-107) mmol/L Carbon Dioxide 26.9 (21.0-32.0) mmol/L BUN 16 (7.0-18.0) mg/dL Creatinine 0.8 (0.8-1.3) mg/dL Est Cr Clr Drug Dosing 105.70 mL/min Estimated GFR (MDRD) > 60.0 ml/min Glucose 127 H (74-106) mg/dL Calcium 7.8 L (8.5-10.1) mg/dL Total Bilirubin 0.4 (0.2-1.0) mg/dL AST 37 (15-37) IU/L ALT 47 (14-63) IU/L Alkaline Phosphatase 46 (46-116) U/L Creatine Kinase 322 H (26-308) U/L Total Protein 5.6 L (6.4-8.2) g/dL Albumin 2.5 L (3.4-5.0) g/dL Globulin 3.1 (2.6-4.0) g/dL Albumin/Globulin Ratio 0.8 L (0.9-1.6) Carlitos Results Last 24 Hours: Microbiology 10/05/20 09:40 Shiga Toxin I & II - Final Stool / Feces Med Orders - Current: Current Medications Acetaminophen (Acetaminophen 325 Mg Tab) 650 mg PO Q4H PRN PRN Reason: Pain (Mild 1-3)/fever Last Admin: 10/04/20 09:14 Dose: 650 mg Documented by: Albuterol/Ipratropium (Albuterol/Ipratropium 4 Gm Inhalation [place]) 0 gm INH Q4HRRT COLLIN Last Admin: 10/07/20 06:30 Dose: 2 puff Documented by: Benzonatate (Benzonatate 100 Mg Cap) 200 mg PO TID PRN PRN Reason: Cough Last Admin: 10/06/20 09:35 Dose: 200 mg Documented by: Dexamethasone (Dexamethasone 4 Mg Tab) 6 mg PO DAILY COUNT INCLUDES THE [facility] Last Admin: 10/06/20 09:25 Dose: 6 mg Documented by: Enoxaparin Sodium (Enoxaparin 40 Mg/0.4 Ml Syringe) 40 mg SUBCUT Q24H COUNT INCLUDES THE [facility] Last Admin: 10/06/20 13:15 Dose: 40 mg Documented by: Guaifenesin/Codeine Phosphate (Codeine/Guaifenesin 10-100 Mg/5 Ml Syrup 5 Ml Cup) 5 ml PO Q6H PRN PRN Reason: Cough Last Admin: 10/03/20 20:25 Dose: 5 ml Documented by: Pantoprazole Sodium 40 mg/ (Sodium Chloride) 10 mls @ 300 mls/hr IV Q24H COUNT INCLUDES THE [facility] Last Admin: 10/06/20 13:15 Dose: 300 mls/hr Documented by: Remdesivir 100 mg/ Sodium (Chloride) 100 mls @ 100 mls/hr IV Q24H COUNT INCLUDES THE [facility] Stop: 10/08/20 12:59 Last Admin: 10/06/20 13:14 Dose: 100 mls/hr Documented by: Lactated Ringer's (Ringers, Lactated) 500 mls @ 999 mls/hr IV .BOLUS COUNT INCLUDES THE [facility] Last Admin: 10/05/20 11:30 Dose: 999 mls/hr Documented by: Meloxicam (Meloxicam 7.5 Mg Tab) 15 mg PO DAILY COUNT INCLUDES THE [facility] Last Admin: 10/06/20 10:38 Dose: 15 mg Documented by: Ondansetron HCl (Ondansetron 4 Mg/2 Ml Sdv) 4 mg IVPUSH Q4H PRN PRN Reason: Nausea Last Admin: 10/03/20 18:15 Dose: 4 mg Documented by: Sodium Chloride (Sodium Chloride 0.9% 2.5 Ml Syringe) 2.5 ml FLUSH ASDIRECTED PRN PRN Reason: Keep Vein Open Trazodone HCl (Trazodone 50 Mg Tab) 50 mg PO BEDTIME PRN PRN Reason: sleep Discontinued Medications Acetaminophen (Acetaminophen 500 Mg Tab) 1,000 mg PO ONETIME ONE Stop: 10/03/20 12:41 Last Admin: 10/03/20 13:00 Dose: 1,000 mg Documented by: Sodium Chloride (Normal Saline) 1,000 mls @ 999 mls/hr IV STAT ONE Stop: 10/03/20 11:29 Last Admin: 10/03/20 10:36 Dose: 999 mls/hr Documented by: Sodium Chloride (Normal Saline) 1,000 mls @ 999 mls/hr IV STAT ONE Stop: 10/03/20 12:45 Last Admin: 10/03/20 12:59 Dose: 999 mls/hr Documented by: Lactated Ringer's (Ringers, Lactated) 1,000 mls @ 150 mls/hr IV Q6HR [place] Stop: 10/03/20 21:30 Last Admin: 10/03/20 18:51 Dose: Not Given Documented by: Lactated Ringer's (Ringers, Lactated) 1,000 mls @ 150 mls/hr IV ONETIME ONE Stop: 10/04/20 14:47 Last Admin: 10/04/20 08:43 Dose: 150 mls/hr Documented by: Lactated Ringer's (Ringers, Lactated) 1,000 mls @ 999 mls/hr IV .BOLUS ONE Stop: 10/04/20 10:00 Last Admin: 10/04/20 09:16 Dose: 999 mls/hr Documented by: Remdesivir 200 mg/ Sodium (Chloride) 250 mls @ 250 mls/hr IV ONETIME ONE Stop: 10/04/20 13:29 Last Admin: 10/04/20 13:00 Dose: 250 mls/hr Documented by: Sodium Chloride (Normal Saline) 1,000 mls @ 150 mls/hr IV ONETIME ONE Stop: 10/05/20 00:14 Last Admin: 10/04/20 17:57 Dose: 150 mls/hr Documented by: Ondansetron HCl (Ondansetron 4 Mg/2 Ml Sdv) 4 mg IVPUSH ONETIME ONE Stop: 10/03/20 10:30 Last Admin: 10/03/20 10:37 Dose: 4 mg Documented by: Ondansetron HCl (Ondansetron 4 Mg/2 Ml Sdv) 4 mg IVPUSH ONETIME ONE Stop: 10/03/20 10:31 Last Admin: 10/03/20 10:36 Dose: Not Given Documented by: Potassium Chloride (Potassium Chloride 20 Meq Tab.Er) 40 meq PO ONETIME ONE Stop: 10/06/20 08:54 Last Admin: 10/06/20 09:26 Dose: 40 meq Documented by: Trazodone HCl (Trazodone 50 Mg Tab) 50 mg PO ONETIME ONE Stop: 10/04/20 21:40 Last Admin: 10/04/20 21:53 Dose: 50 mg Documented by: - Patient Data Lab Results Last 24 hrs: Laboratory Results - last 24 hr 10/07/20 10/07/20 Range/Units 05:18 05:18 WBC 7.13 (4.0-11.0) K/uL RBC 4.42 L (4.50-5.90) M/uL Hgb 13.1 (13.0-17.0) g/dL Hct 37.1 L (38.0-50.0) % MCV 83.9 (80.0-98.0) fL MCH 29.6 (27.0-32.0) pg MCHC 35.3 (31.0-37.0) g/dL RDW Std Deviation 38.4 (28.0-62.0) fl RDW Coeff of Mary Carmen 13 (11.0-15.0) % Plt Count 205 (150-400) K/uL MPV 11.30 (7.40-12.00) fL Neut % (Auto) 82.1 H (48.0-80.0) % Lymph % (Auto) 9.0 L (16.0-40.0) % Barry % (Auto) 8.8 (0.0-15.0) % Eos % (Auto) 0.0 (0.0-7.0) % Baso % (Auto) 0.1 (0.0-1.5) % Neut # (Auto) 5.9 H (1.4-5.7) K/uL Lymph # (Auto) 0.6 (0.6-2.4) K/uL Barry # (Auto) 0.6 (0.0-0.8) K/uL Eos # (Auto) 0.0 (0.0-0.7) K/uL Baso # (Auto) 0.0 (0.0-0.1) K/uL Nucleated RBC % 0.0 /100WBC Nucleated RBCs # 0 K/uL Sodium 140 (136-148) mmol/L Potassium 3.7 (3.5-5.1) mmol/L Chloride 106 (98-107) mmol/L Carbon Dioxide 26.9 (21.0-32.0) mmol/L BUN 16 (7.0-18.0) mg/dL Creatinine 0.8 (0.8-1.3) mg/dL Est Cr Clr Drug Dosing 105.70 mL/min Estimated GFR (MDRD) > 60.0 ml/min Glucose 127 H (74-106) mg/dL Calcium 7.8 L (8.5-10.1) mg/dL Total Bilirubin 0.4 (0.2-1.0) mg/dL AST 37 (15-37) IU/L ALT 47 (14-63) IU/L Alkaline Phosphatase 46 (46-116) U/L Creatine Kinase 322 H (26-308) U/L Total Protein 5.6 L (6.4-8.2) g/dL Albumin 2.5 L (3.4-5.0) g/dL Globulin 3.1 (2.6-4.0) g/dL Albumin/Globulin Ratio 0.8 L (0.9-1.6) Result Diagrams: 10/07/20 05:18 10/07/20 05:18 Carlitos Results Last 24 hrs: Microbiology 10/05/20 09:40 Shiga Toxin I & II - Final Stool / Feces Sepsis Event Note - Evaluation Sepsis Screening Result: No Definite Risk - Focused Exam Vital Signs: Vital Signs Temp Pulse Resp BP Pulse Ox 10/07/20 02:57 97.1 F 85 18 126/83 94 L 10/06/20 23:24 98 F 73 18 130/75 94 L - Problem List & Annotations (1) Acute respiratory failure with hypoxia SNOMED Code(s): 09664237, 060167961 Code(s): J96.01 - ACUTE RESPIRATORY FAILURE WITH HYPOXIA Status: Acute Current Visit: Yes (2) Rhabdomyolysis due to COVID-19 SNOMED Code(s): 160147416 Code(s): U07.1 - COVID-19; M62.82 - RHABDOMYOLYSIS Status: Acute Current Visit: Yes (3) COVID-19 SNOMED Code(s): 612819515 Code(s): U07.1 - COVID-19 Status: Acute Current Visit: Yes (4) Dehydration SNOMED Code(s): 55006549 Code(s): E86.0 - DEHYDRATION Status: Acute Current Visit: Yes (5) Migraines SNOMED Code(s): 73076914 Code(s): G43.909 - MIGRAINE, UNSP, NOT INTRACTABLE, WITHOUT STATUS MIGRAINOSUS Status: Chronic Current Visit: Yes (6) Diarrhea due to COVID-19 SNOMED Code(s): 435573919 Code(s): U07.1 - COVID-19; A08.39 - OTHER VIRAL ENTERITIS Status: Acute Current Visit: Yes - My Orders Last 24 Hours: My Active Orders 10/06/20 10:00 Meloxicam [Mobic] 15 mg PO DAILY - Plan Plan:: This 39-year-old male admitted with COVID-19 infection and rhabdomyolysis 1. Rhabdomyolysis -Steadily improving -CK 615 -We will be cautious with IV fluids due to COVID-19 diagnosis -Monitor strict I's and O's -Urine lightening up no VIKTOR noted 2. Acute hypoxic respiratory failure/COVID-19 -Steadily improving continues to need 2 L nasal cannula -Oxygen to keep sats greater than 92% -Continue remdesivir and Dexamethasone. -I-S and acapella encouraged along with proning -Symptomatic relief with cough medicine and Zofran for nausea -Encourage p.o. intake of fluids as possible -Diarrhea improving, negative Hemoccult other stool culture pending -Lovenox for VT prophylaxis -Combivent inhaler every 4 hours -Monitor LFTs daily while on remdesivir treatment VTE prophylaxis: Lovenox GI prophylaxis: Protonix CODE STATUS: Full code Dispo: 2-3 days pending improvement
[2020-10-07] MEDS: Dexamethasone 4 MG Tab PO SCH (09:22)
[2020-10-07] MEDS: Meloxicam 7.5 MG Tab PO SCH (09:23)
[2020-10-07 09:33] VITALS: BP 107/55; PULSE 79
[2020-10-07] MEDS: Benzonatate 100 MG Cap PO PRN (10:00)
--- NOTE | 2020-10-07 11:07 | PCM.DCSUM1 ---
Discharge Summary - Hospital Course Brief History: This 38-year-old with little past medical history presented to the ER with complaints of generalized fatigue, malaise body aches dehydration inability to eat or drink and minimal taste. He reports he started getting symptoms of a scratchy throat shortness of breath nausea and vomiting last Saturday nearly a week ago. He reports that he is also had a fever of 104 F along with chills body aches loss of taste nausea vomiting and diarrhea. He reports nonproductive cough but does have some shortness of breath along with chest pain with coughing as well as taking deep breaths. He denies any dark- colored urine though it is more yellow and concentrated in appearance. He reports his diarrhea is yellow and watery approximately 1-2 times daily. He reports he has not eaten or drank very much in the last 4 to 5 days due to symptoms listed above. He denies any abdominal pain or black or bloody bowel movements. He denies tobacco use recreational drug use or alcohol use. Denies Covid vaccination. In the ER platelet count noted to be 116,000, no leukocytosis. Sodium 130 chloride 95 potassium 4.2. BUN 18 creatinine 1.3 lactic acid 1.0. Mild elevation in AST at 81. CK notably elevated at 1839 troponin negative. Covid swab positive at the walk-in clinic. Chest x-ray reveals hyperinflation and chronic interstitial changes with increased interstitial markings likely representing pulmonary edema and/or multifocal infiltrates. EKG shows normal sinus rhythm no ST or T wave changes indicative of ischemia heart rate 90s. Patient was treated with Tylenol Zofran and 2 L normal saline bolus. Patient will be admitted inpatient for COVID-19, rhabdomyolysis and dehydration. Currently patient is not hypoxic noted to be dyspneic but oxygen saturation 94% on room air. - Discharge Data Discharge Date: 10/07/20 Discharge Disposition: Home, Self-Care 01 Condition: Stable - Referral to Home Health Primary Care Physician: Fabricio Hickey MD - Discharge Diagnosis/Problem(s) (1) Acute respiratory failure with hypoxia SNOMED Code(s): 84722931, 624238432 ICD Code: J96.01 - ACUTE RESPIRATORY FAILURE WITH HYPOXIA Status: Acute (2) Rhabdomyolysis due to COVID-19 SNOMED Code(s): 208045929 ICD Code: U07.1 - COVID-19; M62.82 - RHABDOMYOLYSIS Status: Acute (3) COVID-19 SNOMED Code(s): 401154994 ICD Code: U07.1 - COVID-19 Status: Acute (4) Dehydration SNOMED Code(s): 40943544 ICD Code: E86.0 - DEHYDRATION Status: Acute (5) Migraines SNOMED Code(s): 72957603 ICD Code: G43.909 - MIGRAINE, UNSP, NOT INTRACTABLE, WITHOUT STATUS MIGRAINOSUS Status: Chronic (6) Diarrhea due to COVID-19 SNOMED Code(s): 157872495 ICD Code: U07.1 - COVID-19; A08.39 - OTHER VIRAL ENTERITIS Status: Acute - Patient Summary/Data Hospital Course: Admission Diagnoses: Rhabdomyolysis COVID 19 Discharge Diagnoses: COVID 19 Acute hypoxic respiratory failure Rhabdomyolysis Costa was admitted secondary to rhabdo. He was treated with 2 L of IV fluids in the ER. At that time he was noted to not be hypoxic. He was admitted and CPK was monitored. CPK did elevate slightly to 2300 he was given another liter of fluid. Patient slowly and steadily improved with nausea vomiting and appetite. Patient became hypoxic on day 2 of admission and remdesivir and dexamethasone was started. He was slowly weaned from oxygen over the following days and today he was noted to be 98% on room air with activity 95% on room air. Patient is very eager to go home CPK has decreased to 315. He is eating and drinking well. He is to continue quarantine for a total of 20 days due to severity of illness. Work note provided. He will be sent home with [facility]. He was encouraged to receive cold vaccination though he is very hesitant still. Patient to follow-up with PCP in 1 to 2 weeks. Return to the ER or clinic sooner if concerns should arise. - Patient Instructions Diet: Regular Diet as Tolerated Activity: No Strenuous Activities, Rest and Relax Today Showering/Bathing: May Shower Notify Provider of: Fever, Increased Pain, Swelling and Redness, Drainage, Nausea and/or Vomiting - Discharge Plan *PRESCRIPTION DRUG MONITORING PROGRAM REVIEWED*: Not Applicable *COPY OF PRESCRIPTION DRUG MONITORING REPORT IN PATIENT BRIANNA: Not Applicable Prescriptions/Med Rec: Albuterol/Ipratropium [Combivent Respimat] 2 puff INH Q4HR PRN #1 inhaler PRN Reason: SOB/wheezing Benzonatate [Tessalon Perle] 100 mg PO TID PRN #60 capsule PRN Reason: Cough Home Medications: Home Meds Omeprazole [Prilosec] 20 mg PO BID 01/20/15 [History] Cyclobenzaprine [Flexeril] 10 mg PO ASDIRECTED PRN 09/06/18 [History] Fexofenadine [Radha] 30 mg PO DAILY 03/10/19 [History] Fluticasone Propionate [Flonase Allergy Relief] 2 spray NASBOTH DAILY 03/10/19 [History] Loratadine [Claritin] 10 mg PO DAILY 03/10/19 [History] Meloxicam 15 mg PO DAILY 03/10/19 [History] SUMAtriptan [Imitrex] 50 mg PO ASDIRECTED PRN 03/10/19 [History] methocarbamoL [Robaxin-750] 750 mg PO TID 03/10/19 [History] Acetaminophen [Tylenol] 650 mg PO Q4H PRN tablet 10/07/20 [Rx] Albuterol/Ipratropium [Combivent Respimat] 2 puff INH Q4HR PRN #1 inhaler 10/07/20 [Rx] Benzonatate [Tessalon Perle] 100 mg PO TID PRN #60 capsule 10/07/20 [Rx] Oxygen Therapy Mode: Room Air Patient Handouts: Ipratropium; Albuterol Inhalation Chester (Combivent Respimat), Rhabdomyolysis, COVID-19, What You Should Know About COVID-19 to Protect Yourself and Others - CDC, COVID-19: How to Protect Yourself and Others - CDC, Symptoms of Coronavirus - CDC (04/04/2020), Benzonatate capsules Referrals: Fabricio Hickey MD [Primary Care Provider] - 10/18/20 1:00 pm - Discharge Summary/Plan Comment DC Time >30 min.: No Total # of Minutes for Discharge Time: 25 - Patient Data Vitals - Most Recent: Last Vital Signs Temp 97.9 F 10/07/20 09:31 Pulse 79 10/07/20 09:31 Resp 18 10/07/20 09:31 BP 107/55 L 10/07/20 09:31 Pulse Ox 96 10/07/20 09:31 Weight - Most Recent: 81.964 kg I&O - Last 24 hours: Intake & Output 10/06/20 10/07/20 10/07/20 22:59 06:59 14:59 Intake Total 1100 850 Output Total 250 550 Balance 850 300 Lab Results - Last 24 hrs: Laboratory Results - last 24 hr 10/07/20 10/07/20 Range/Units 05:18 05:18 WBC 7.13 (4.0-11.0) K/uL RBC 4.42 L (4.50-5.90) M/uL Hgb 13.1 (13.0-17.0) g/dL Hct 37.1 L (38.0-50.0) % MCV 83.9 (80.0-98.0) fL MCH 29.6 (27.0-32.0) pg MCHC 35.3 (31.0-37.0) g/dL RDW Std Deviation 38.4 (28.0-62.0) fl RDW Coeff of Mary Carmen 13 (11.0-15.0) % Plt Count 205 (150-400) K/uL MPV 11.30 (7.40-12.00) fL Neut % (Auto) 82.1 H (48.0-80.0) % Lymph % (Auto) 9.0 L (16.0-40.0) % Ritchie % (Auto) 8.8 (0.0-15.0) % Eos % (Auto) 0.0 (0.0-7.0) % Baso % (Auto) 0.1 (0.0-1.5) % Neut # (Auto) 5.9 H (1.4-5.7) K/uL Lymph # (Auto) 0.6 (0.6-2.4) K/uL Ritchie # (Auto) 0.6 (0.0-0.8) K/uL Eos # (Auto) 0.0 (0.0-0.7) K/uL Baso # (Auto) 0.0 (0.0-0.1) K/uL Nucleated RBC % 0.0 /100WBC Nucleated RBCs # 0 K/uL Sodium 140 (136-148) mmol/L Potassium 3.7 (3.5-5.1) mmol/L Chloride 106 (98-107) mmol/L Carbon Dioxide 26.9 (21.0-32.0) mmol/L BUN 16 (7.0-18.0) mg/dL Creatinine 0.8 (0.8-1.3) mg/dL Est Cr Clr Drug Dosing 105.70 mL/min Estimated GFR (MDRD) > 60.0 ml/min Glucose 127 H (74-106) mg/dL Calcium 7.8 L (8.5-10.1) mg/dL Total Bilirubin 0.4 (0.2-1.0) mg/dL AST 37 (15-37) IU/L ALT 47 (14-63) IU/L Alkaline Phosphatase 46 (46-116) U/L Creatine Kinase 322 H (26-308) U/L Total Protein 5.6 L (6.4-8.2) g/dL Albumin 2.5 L (3.4-5.0) g/dL Globulin 3.1 (2.6-4.0) g/dL Albumin/Globulin Ratio 0.8 L (0.9-1.6) SHERRELL Results - Last 24 hrs: Microbiology 10/05/20 09:40 Shiga Toxin I & II - Final Stool / Feces Med Orders - Current: Current Medications Acetaminophen (Acetaminophen 325 Mg Tab) 650 mg PO Q4H PRN PRN Reason: Pain (Mild 1-3)/fever Last Admin: 10/04/20 09:14 Dose: 650 mg Documented by: Albuterol/Ipratropium (Albuterol/Ipratropium 4 Gm Inhalation [place]) 0 gm INH Q4HRRT [facility] Last Admin: 10/07/20 09:24 Dose: 2 puff Documented by: Benzonatate (Benzonatate 100 Mg Cap) 200 mg PO TID PRN PRN Reason: Cough Last Admin: 10/07/20 10:00 Dose: 200 mg Documented by: Dexamethasone (Dexamethasone 4 Mg Tab) 6 mg PO DAILY [facility] Last Admin: 10/07/20 09:22 Dose: 6 mg Documented by: Enoxaparin Sodium (Enoxaparin 40 Mg/0.4 Ml Syringe) 40 mg SUBCUT Q24H [facility] Last Admin: 10/06/20 13:15 Dose: 40 mg Documented by: Guaifenesin/Codeine Phosphate (Codeine/Guaifenesin 10-100 Mg/5 Ml Syrup 5 Ml Cup) 5 ml PO Q6H PRN PRN Reason: Cough Last Admin: 10/03/20 20:25 Dose: 5 ml Documented by: Pantoprazole Sodium 40 mg/ (Sodium Chloride) 10 mls @ 300 mls/hr IV Q24H COLLIN Last Admin: 10/06/20 13:15 Dose: 300 mls/hr Documented by: Remdesivir 100 mg/ Sodium (Chloride) 100 mls @ 100 mls/hr IV Q24H [facility] Stop: 10/08/20 12:59 Last Admin: 10/06/20 13:14 Dose: 100 mls/hr Documented by: Lactated Ringer's (Ringers, Lactated) 500 mls @ 999 mls/hr IV .BOLUS [facility] Last Admin: 10/05/20 11:30 Dose: 999 mls/hr Documented by: Meloxicam (Meloxicam 7.5 Mg Tab) 15 mg PO DAILY [facility] Last Admin: 10/07/20 09:23 Dose: 15 mg Documented by: Ondansetron HCl (Ondansetron 4 Mg/2 Ml Sdv) 4 mg IVPUSH Q4H PRN PRN Reason: Nausea Last Admin: 10/03/20 18:15 Dose: 4 mg Documented by: Sodium Chloride (Sodium Chloride 0.9% 2.5 Ml Syringe) 2.5 ml FLUSH ASDIRECTED PRN PRN Reason: Keep Vein Open Trazodone HCl (Trazodone 50 Mg Tab) 50 mg PO BEDTIME PRN PRN Reason: sleep Discontinued Medications Acetaminophen (Acetaminophen 500 Mg Tab) 1,000 mg PO ONETIME ONE Stop: 10/03/20 12:41 Last Admin: 10/03/20 13:00 Dose: 1,000 mg Documented by: Sodium Chloride (Normal Saline) 1,000 mls @ 999 mls/hr IV STAT ONE Stop: 10/03/20 11:29 Last Admin: 10/03/20 10:36 Dose: 999 mls/hr Documented by: Sodium Chloride (Normal Saline) 1,000 mls @ 999 mls/hr IV STAT ONE Stop: 10/03/20 12:45 Last Admin: 10/03/20 12:59 Dose: 999 mls/hr Documented by: Lactated Ringer's (Ringers, Lactated) 1,000 mls @ 150 mls/hr IV Q6HR [facility] Stop: 10/03/20 21:30 Last Admin: 10/03/20 18:51 Dose: Not Given Documented by: Lactated Ringer's (Ringers, Lactated) 1,000 mls @ 150 mls/hr IV ONETIME ONE Stop: 10/04/20 14:47 Last Admin: 10/04/20 08:43 Dose: 150 mls/hr Documented by: Lactated Ringer's (Ringers, Lactated) 1,000 mls @ 999 mls/hr IV .BOLUS ONE Stop: 10/04/20 10:00 Last Admin: 10/04/20 09:16 Dose: 999 mls/hr Documented by: Remdesivir 200 mg/ Sodium (Chloride) 250 mls @ 250 mls/hr IV ONETIME ONE Stop: 10/04/20 13:29 Last Admin: 10/04/20 13:00 Dose: 250 mls/hr Documented by: Sodium Chloride (Normal Saline) 1,000 mls @ 150 mls/hr IV ONETIME ONE Stop: 10/05/20 00:14 Last Admin: 10/04/20 17:57 Dose: 150 mls/hr Documented by: Ondansetron HCl (Ondansetron 4 Mg/2 Ml Sdv) 4 mg IVPUSH ONETIME ONE Stop: 10/03/20 10:30 Last Admin: 10/03/20 10:37 Dose: 4 mg Documented by: Ondansetron HCl (Ondansetron 4 Mg/2 Ml Sdv) 4 mg IVPUSH ONETIME ONE Stop: 10/03/20 10:31 Last Admin: 10/03/20 10:36 Dose: Not Given Documented by: Potassium Chloride (Potassium Chloride 20 Meq Tab.Er) 40 meq PO ONETIME ONE Stop: 10/06/20 08:54 Last Admin: 10/06/20 09:26 Dose: 40 meq Documented by: Trazodone HCl (Trazodone 50 Mg Tab) 50 mg PO ONETIME ONE Stop: 10/04/20 21:40 Last Admin: 10/04/20 21:53 Dose: 50 mg Documented by:
== END 2020-10-07 12:35 | disposition home or self-care (01) | DRG 177 ==
LOC: MW.ED 10:11 → MW.MS 11:37 → OBSVTOIN 16:08
PROVIDERS: ADMIT Internal Medicine; ATTEND Internal Medicine
PROC: 8E0ZXY6 Isolation (ICD-10-PCS; principal; 2020-10-03)
PROC: XW033E5 Introduction of Remdesivir Anti-infective into Peripheral Vein, Percutaneous Approach, New Technology Group 5 (ICD-10-PCS; 2020-10-03)
PROC: XW033F5 Introduction of Other New Technology Therapeutic Substance into Peripheral Vein, Percutaneous Approach, New Technology Group 5 (ICD-10-PCS; 2020-10-03)
DX: U07.1 COVID-19 (principal); J96.01 Acute respiratory failure with hypoxia; M62.82 Rhabdomyolysis; A08.39 Other viral enteritis; E86.0 Dehydration; G43.909 Migraine, unspecified, not intractable, without status migrainosus; J45.909 Unspecified asthma, uncomplicated; H54.7 Unspecified visual loss; Z87.442 Personal history of urinary calculi; K21.9 Gastro-esophageal reflux disease without esophagitis; G89.29 Other chronic pain; M54.9 Dorsalgia, unspecified; L30.1 Dyshidrosis [pompholyx]; Z88.8 Allergy status to other drugs, medicaments and biological substances; Z88.6 Allergy status to analgesic agent; Z88.1 Allergy status to other antibiotic agents; Z91.018 Allergy to other foods; Z79.899 Other long term (current) drug therapy
CPT/HCPCS: 36415; 71045; 80053; 81001; 82550 ×2; 83605; 83690; 84484; 85025; 93005; 96374; 99285; A9270; C9113; J1650; J2405; J7030 ×2; J7120; 80048; 82272; 83735; 87045; 87046; 87324; 87449; 87899; 94640; 94664; 94667; 94668; J7050; J8540

== ENCOUNTER 2024-04-08 06:27 | Day surgery (SDC) | payer BC, OTHER ==
[2024-04-08] MEDS: Lactated Ringers 1,000 ML IV SCH (06:50)
[2024-04-08] MEDS ORDERED: Bupivacaine 0.25% 30 ML SDV ONE (07:10)
[2024-04-08] MEDS ORDERED: Midazolam 1 MG/ML 2 ML SDV ONE (07:12)
[2024-04-08] MEDS ORDERED: Propofol 200 MG/20 ML SDV ONE (07:12)
[2024-04-08] MEDS ORDERED: fentaNYL 100 MCG/2 ML SDV ONE (07:12)
[2024-04-08] MEDS ORDERED: Lidocaine 2% 5 ML SDV ONE (07:13)
[2024-04-08] MEDS ORDERED: Rocuronium Bromide 50 MG/5 ML Syringe ONE (07:39)
[2024-04-08] MEDS ORDERED: ceFAZolin 1 GM Vial ONE (07:50)
[2024-04-08] MEDS ORDERED: ceFAZolin 2 GM in Sodium Chloride 0.9% 50 ML IV ONE (08:00)
[2024-04-08] MEDS ORDERED: Ondansetron 4 MG/2 ML SDV ONE (08:07)
[2024-04-08] MEDS ORDERED: Dexamethasone 4 MG/ML 5 ML MDV ONE (08:07)
[2024-04-08] MEDS ORDERED: Ketorolac 30 MG/ML SDV ONE (08:07)
[2024-04-08] MEDS ORDERED: Sugammadex Sodium 200 MG/2 ML VIAL IV ONE (08:07)
[2024-04-08] MEDS ORDERED: Phenylephrine HCl In 0.9% NaCl 1 MG/10 ML Syringe IVPUSH PRN (09:35)
[2024-04-08] MEDS ORDERED: Albuterol 0.083% 2.5 MG/3 ML Neb Soln NEB PRN (09:35)
[2024-04-08] MEDS ORDERED: fentaNYL 50 MCG/ML SDV IVPUSH PRN (09:35)
[2024-04-08] MEDS ORDERED: Morphine 2 MG/ML SYRINGE IVPUSH PRN (09:35)
[2024-04-08] MEDS ORDERED: Metoclopramide 10 MG/2 ML SDV IVPUSH PRN (09:35)
[2024-04-08] MEDS ORDERED: Naloxone 0.4 MG/ML SDV IVPUSH PRN (09:35)
[2024-04-08] MEDS ORDERED: Ondansetron 4 MG/2 ML SDV IVPUSH PRN (09:35)
[2024-04-08] MEDS ORDERED: HYDROmorphone 1 MG/ML Syringe ONE (09:40)
[2024-04-08] MEDS: HYDROmorphone 1 MG/ML Syringe IVPUSH PRN (09:44)
[2024-04-08 10:55] VITALS: BP 121/76; PULSE 74
== END 2024-04-08 10:35 | disposition home or self-care (01) ==
LOC: MW.SDS 06:27
PROVIDERS: ATTEND Orthopaedic Surgery
DX: D16.8 Benign neoplasm of pelvic bones, sacrum and coccyx (principal); I10 Essential (primary) hypertension; K21.9 Gastro-esophageal reflux disease without esophagitis; Z88.8 Allergy status to other drugs, medicaments and biological substances; Z88.1 Allergy status to other antibiotic agents; Z88.5 Allergy status to narcotic agent; Z91.018 Allergy to other foods; Z79.899 Other long term (current) drug therapy
CPT/HCPCS: 27066; J0131; J0665; J0690; J1100; J1171; J1885; J2003; J2250; J2704; J3010; J7120; 01210; 88307; J2405; J3490